=== PATIENT | female | born 1940 | race Two or more races ===

== ENCOUNTER 2019-03-24 11:53 | Inpatient (IN) | payer MEDICARE, MEDICAID ==
[~2019-03-24] VITALS: Ht 162.6 cm; Wt 122.5 kg
--- NOTE | 2019-03-24 11:55 | NUR ---
[id number] C/O L KNEE AREA PAIN S/P GLF IN A BATHROOM TODAY, pt awake, alert, -sob, nad noted, vss, pending md grimes
[2019-03-24] MEDS ORDERED: SPIR25TA6 PO (12:11)
[2019-03-24] MEDS ORDERED: FLUC200T PO (12:11)
[2019-03-24] MEDS ORDERED: BUME2TAB7 PO (12:11)
[2019-03-24] MEDS ORDERED: ROPI2TAB7 PO (12:11)
[2019-03-24] MEDS ORDERED: CARV6.25 PO (12:11)
[2019-03-24] MEDS ORDERED: PREG50CA PO (12:11)
[2019-03-24] MEDS ORDERED: FLEC100T2 PO (12:11)
[2019-03-24] MEDS ORDERED: EMPA25TA PO (12:11)
[2019-03-24] MEDS ORDERED: RIVA10TA PO (12:11)
[2019-03-24] MEDS ORDERED: GLIM1TAB18 PO (12:11)
[2019-03-24] MEDS ORDERED: ATOR20TA PO (12:11)
[2019-03-24] MEDS ORDERED: FOLI0.4T2 PO (12:11)
[2019-03-24] MEDS ORDERED: LINA145C PO (12:11)
[2019-03-24] MEDS ORDERED: TRAV5DRO EACHEYE (12:11)
[2019-03-24] MEDS ORDERED: ESOM40CA PO (12:11)
[2019-03-24] MEDS ORDERED: OLOP2.5D5 EACHEYE (12:13)
[2019-03-24] MEDS ORDERED: LIRA0.6P2 SQ (12:13)
[2019-03-24] MEDS ORDERED: HYDROMORPHONE 1 MG/1 ML DISP.SYRIN ONE ×2 (12:19→13:30)
[2019-03-24] MEDS ORDERED: HYDROMORPHONE INJ 0.5 MG/0.5 ML SYRINGE IV ONE ×2 (12:30→13:30)
--- NOTE | 2019-03-24 13:22 | NUR ---
NURSING SUP GAVE BED 204-1.
[2019-03-24 13:27] LABS: ALBUMIN 3.1 g/dL (3.4-5.0); BILIRUBIN,DIRECT 0.1 mg/dL (0.0-0.2); BILIRUBIN,TOTAL 0.5 mg/dL (0.2-1.0); TOTAL PROTEIN, SERUM 7.1 g/dL (6.4-8.2)
--- NOTE | 2019-03-24 13:35 | NUR ---
CALLED [facility], KATHRYN RAMOS
[2019-03-24 13:42] LABS: APPEARANCE,URINE Slightly Cloudy (CLEAR); BILIRUBIN,URINE Negative (NEGATIVE); BLOOD, URINE Negative Ery/uL (NEGATIVE); COLOR,URINE Yellow (YELLOW); KETONES,URINE Negative (NEGATIVE); LEUKOCYTE ESTERASE ,URINE Negative (NEGATIVE); NITRITE, URINE Positive (NEGATIVE); PH,URINE 5.5 (5.0-8.0); PROTEIN,URINE Negative (NEGATIVE); UGLUCOSE >=1000 mg/dL (NEGATIVE); UROBILINOGEN,URINE 0.2 EU/dL (0.2)
[2019-03-24 13:49] LABS: BACTERIA,URINE 3+ /HPF (None Seen); RBC,URINE NONE SEEN /HPF (0-2); SQUAMOUS EPITHELIAL CELL,UR Few /HPF (None Seen)
--- NOTE | 2019-03-24 14:00 | NUR ---
report given to sepideh linares for estuardo pt will be transported to ms
[2019-03-24 14:13] LABS: BASOPHILS % (AUTO) 0.4 % (0.0-2.0); EOSINOPHILS % (AUTO) 1.7 % (0.0-6.0); HEMATOCRIT 45 % (33-45); HEMOGLOBIN 14.5 g/dL (11.5-14.8); LYMPHOCYTES # (AUTO) 1.8 /CMM (0.8-4.8); MEAN CORPUSCULAR HGB CONC 32 g/dl (31.0-36.0); MEAN CORPUSCULAR VOLUME 82 fL (82-100); MONOCYTES # (AUTO) 0.6 /CMM (0.1-1.30); MONOCYTES % (AUTO) 5.7 % (2.0-12.0); NEUTROPHILS # (AUTO) 8.2 /CMM (1.8-8.9); NEUTROPHILS % (AUTO) 75.2 % (43.0-81.0); PLATELET COUNT (AUTO) 204 /CMM (150-450); RED BLOOD CELL COUNT(AUTO) 5.51 MIL/uL (4.0-5.2); WHITE BLOOD COUNT (AUTO) 10.8 K/uL (4.3-11.0)
[2019-03-24 14:24] LABS: CARBON DIOXIDE 27 mmol/L (21-32); CHLORIDE 99 mmol/L (98-107); CREATININE 1.1 mg/dL (0.6-1.3); GLUCOSE 192 mg/dL (74-106); POTASSIUM 4.7 mmol/L (3.5-5.1); SODIUM SERUM 138 mmol/L (136-145); UREA NITROGEN, BLOOD 37 mg/dL (7-18)
[2019-03-24 14:30] VITALS: BP 167/77
[2019-03-24] MEDS ORDERED: ACETAMINOPHEN 325 MG TABLET PO PRN (14:30)
[2019-03-24] MEDS ORDERED: Z GUARD REMEDY 2 OZ OINT TP PRN (14:30)
[2019-03-24] MEDS ORDERED: ONDANSETRON HCL/PF 4 MG/2 ML VIAL IVP PRN (14:30)
[2019-03-24] MEDS ORDERED: MAG HYDROX/AL HYDROX/SIMETH 30 ML UDC PO PRN (14:30)
[2019-03-24] MEDS ORDERED: MAGNESIUM HYDROXIDE 30 ML UDC PO PRN (14:30)
[2019-03-24 14:50] VITALS: BP 167/77
--- NOTE | 2019-03-24 14:58 | NUR ---
PT TRANSPORTED TO 2ND FLOOR
--- NOTE | 2019-03-24 14:58 | NUR ---
RECEIVED PATIENT FROM ER VIA GURNEY. PATIENT A/OX3, HAITIAN SPEAKING, KNOW BASIC FRISIAN. DIAGNOSIS OF LEFT FEMUR FRACTURE. NOT IN ANY FORM OF DISTRESS, NO SOB. COMPLAINTS OF LEFT LEG PAIN 7/10 ACHING. JUST MEDICATED WITH DILAUDID IN EMERGENCY ROOM. WILL MEDICATE PAIN MEDS ACCORDINGLY. SITUATED PATIENT IN THE ROOM. SHOWED HOW TO USE THE CALL LIGHT AND INSTRUCTED TO IT IF ASSISTANCE IS NEEDED. BELONGINGS CHECKED BY MARII MOSHER, AND NOTED IT ON THE BELONGINGS FORM. REFUSED SKIN ASSESSMENT ON THE ENTIRE BACK PATIENT IS IN PAIN. PATIENT AGREED TO TAKE PICTURES. PHOTOS TAKEN ON BOTH LEGS, ABDOMEN, AND RIGHT BREAST. KEPT PATIENT SAFE AND COMFORTABLE. BED IN LOW/LOCKED POSITION, SIDERAILS UPX2, CALL LIGHT IN REACH. WILL CONTINUE TO MONITOR ACCORDINGLY.
--- NOTE | 2019-03-24 15:32 | NUR ---
MS RN NOTES SEEN AND EVALUATED BY ADMITTING MD/ED. CURRENTLY IN THE ROOM WITH FAMILY AND PT.
--- NOTE | 2019-03-24 15:37 | NUR ---
NPO AFTERMIDNIGHT PER DR THOMPSON.
[2019-03-24] MEDS ORDERED: FEE PK DOSING 1 MIN EA MC ONE (15:59)
[2019-03-24 16:00] VITALS: BP 154/85
[2019-03-24] MEDS: VANCOMYCIN 1.5 GM in IV D5W 500 ML IV SCH (16:42)
[2019-03-24] MEDS: OLOPATADINE HCL 0.1% OPHTH BOTTLE OP SCH (17:00)
[2019-03-24] MEDS: PANTOPRAZOLE 40 MG TABLET.DR PO SCH (17:13)
[2019-03-24] MEDS: GLIMEPIRIDE 1 MG TABLET PO SCH (17:13)
[2019-03-24] MEDS: ropiniROLE 0.5 MG TABLET PO SCH (17:13)
[2019-03-24] MEDS: FLECAINIDE ACETATE (100 MG) 100 MG TABLET PO SCH (17:14)
[2019-03-24] MEDS: BUMETANIDE (1 MG) 1 MG TABLET PO SCH (17:18)
--- NOTE | 2019-03-24 17:20 | NUR ---
MS RN NOTES PT SEEN AND EVALUATED BY SAMMIE/SHERRILL MCNAMARA FROM [facility]. SPOKE TO PT AND FAMILY AT BEDSIDE REGARDING SCHEDULED SURGERY TOMORROW. AWAITING FOR ACTUAL "SURGERY ORDER", CONSENTS PREPARED. WILL ENDORSE TO INCOMING NIGHT NURSE FOR JOSE.
[2019-03-24] MEDS: CARVEDILOL 6.25 MG TABLET PO SCH (17:23)
[2019-03-24] MEDS: MORPHINE SULFATE INJ 2 MG/ML DISP.SYRIN IV PRN ×2 (18:32→22:44)
--- NOTE | 2019-03-24 18:45 | NUR ---
MS RN CLOSING NOTES PT REMAINS IN BED, AWAKE, A/OX4. GERMAN SPEAKING, DAUGHTER/CHRISTINE PRESENT AT BEDSIDE. PT ON SUPPLEMENTARY OXYGEN AT 2LPM VIA NC, WITH NO ACUTE RESPIRATORY DISTRESS NOTED. PT STATED PAIN ON LEFT SIDE OF HIP TO KNEE, PRN PAIN MEDICINE GIVEN ORDERED. PIV TO LAC G18, FLUSHED WITH NS, INTACT AND OPERATIONAL. FC IN PLACE, WITH CLEAR YELLOW URINE IN THE BAG. PT KEPT COMFORTABLE. ALL NEEDS AND CARE ATTENDED. PT'S BED IN LOWEST LOCKED POSITION WITH SR X3. CALL LIGHT KEPT WITHIN REACH. WILL ENDORSE TO INCOMING NIGHT NURSE FOR JOSE.
--- NOTE | 2019-03-24 19:05 | NUR ---
DINORAH MS OPENING NOTES RECEIVED PATIENT IN BED AWAKE ALERT AND ORIENTED X4, RESPIRATIONS EVEN AND UNLABORED WITH EQUAL RISE AND FALL OF CHEST, AT THIS TIME, DENIES ANY PAIN OR DISCOMFORT, IV SITE TO LEFT AC #18 G INTACT AND PATENT, NO REDNESS, NO INFILTRATION PRESENT, SAFETY PRECAUTIONS RENDERED, ORIENTED TO STAFF AND CALL LIGHT AND KEPT WITHIN REACH, LOW BED AND LOCKED, ALL NEEDS ATTENDED AT THIS TIME, WILL CONTINUE TO MONITOR AND ATTEND TO NEEDS, DRESSING REMAINS CLEAN DRY AND INTACT TO LEFT FOOT. Addendum: 03/25/19 at 0718 by PADMINI BASHIR RN DISREGARD WRONG ENTRY
[2019-03-24 20:00] VITALS: BP 146/74
[2019-03-24] MEDS: LATANOPROST EYE DROP 0.005% 2.5 ML BOTTLE OP SCH (21:06)
[2019-03-24 21:19] VITALS: BP 146/74
--- NOTE | 2019-03-24 22:46 | NUR ---
rn ms notes patient complaint of pain to left hip, requested for morphine states 08/15 prn given as ordered vs wnl. will continue to monitor and attend to needs, offered to reposition turn and see back patient refused.
--- NOTE | 2019-03-25 00:06 | NUR ---
rn ms notes received call from md juan keita patient to be npo at midnight scheduled for 4pm surgery.
--- NOTE | 2019-03-25 01:57 | NUR ---
rn ms notes patient complaint of pain to left leg 11/15 requesting for pain medication one time. hospitalist samantha made aware with new order for dilaudid 1mg ivp x 1 dose to be given with zofran 4mg once. patient made aware agreed with plan , vs wnl 126/68,94,94%, 18. will give as ordered.
[2019-03-25] MEDS ORDERED: HYDROMORPHONE 1 MG/1 ML DISP.SYRIN IV ONE (02:00)
--- NOTE | 2019-03-25 05:22 | NUR ---
rn ms notes unable to assess skin to sacral area. patient encouraged to turn and reposition per patient states " no leave me alone dont touch too much pain" despite pain medication provided. also attempted to reposition ble and offload patient does not want pillows to ble states "take it out" despite education. will continue to encourage repositioning and offloading.
[2019-03-25] MEDS: MORPHINE SULFATE INJ 2 MG/ML DISP.SYRIN IV PRN (06:39)
--- NOTE | 2019-03-25 06:40 | NUR ---
rn ms notes patient complaint of pain to left hip, requested for morphine states 10/10 prn given as ordered vs wnl. will continue to monitor and attend to needs, offered to reposition turn and see back patient refused.
--- NOTE | 2019-03-25 07:13 | NUR ---
MS RN OPENING NOTES RECEIVED PT IN BED, AWAKE, A/OX4. TUNISIAN SPEAKING, DAUGHTER/CHRISTINE PRESENT AT BEDSIDE. PT ON SUPPLEMENTARY OXYGEN AT 2LPM VIA NC, WITH NO ACUTE RESPIRATORY DISTRESS NOTED. PT STATED PAIN ON LEFT SIDE OF HIP TO KNEE, PRN PAIN MEDICINE GIVEN ORDERED BY NIGHT NURSE. PIV TO LAC G18, FLUSHED WITH NS, INTACT AND OPERATIONAL. FC IN PLACE, WITH CLEAR YELLOW URINE IN THE BAG. PT KEPT COMFORTABLE. PT CURRENTLY ON NPO, SCHEDULED SURGERY TODAY AT 4PM. PT'S BED IN LOWEST LOCKED POSITION WITH SR X3. CALL LIGHT KEPT WITHIN REACH. WILL CONTINUE PLAN OF CARE.
--- NOTE | 2019-03-25 07:13 | NUR ---
RN MS CLOSING NOTES PATIENT IN BED AWAKE ALERT AND ORIENTED X3, RESPIRATIONS EVEN AND UNLABORED WITH EQUAL RISE AND FALL OF CHEST, AT THIS TIME,MORPHINE EFFECTIVE STATES "HELPED WITH PAIN BETTER", IV SITE TO LEFT AC #18 G INTACT AND PATENT, NO REDNESS, NO INFILTRATION PRESENT, SAFETY PRECAUTIONS RENDERED, CALL LIGHT KEPT WITHIN REACH, LOW BED AND LOCKED, ALL NEEDS ATTENDED AT THIS TIME, WILL CONTINUE TO MONITOR AND ATTEND TO NEEDS AND ENDORSE TO NEXT SHIFT, ALL DUE MEDICATIONS GIVEN NO ADVERSE REACTIONS PRESENT.
[2019-03-25 07:46] LABS: BASOPHILS % (AUTO) 0.2 % (0.0-2.0); EOSINOPHILS % (AUTO) 1.3 % (0.0-6.0); HEMATOCRIT 42 % (33-45); HEMOGLOBIN 13.7 g/dL (11.5-14.8); LYMPHOCYTES # (AUTO) 1.3 /CMM (0.8-4.8); LYMPHOCYTES % (AUTO) 14.2 % (20.0-44.0); MEAN CORPUSCULAR HGB CONC 32 g/dl (31.0-36.0); MEAN CORPUSCULAR VOLUME 82 fL (82-100); MONOCYTES # (AUTO) 0.7 /CMM (0.1-1.30); MONOCYTES % (AUTO) 8.1 % (2.0-12.0); NEUTROPHILS % (AUTO) 76.2 % (43.0-81.0); PLATELET COUNT (AUTO) 183 /CMM (150-450); RED BLOOD CELL COUNT(AUTO) 5.14 MIL/uL (4.0-5.2); WHITE BLOOD COUNT (AUTO) 9.2 K/uL (4.3-11.0)
[2019-03-25 07:55] LABS: ALBUMIN 2.7 g/dL (3.4-5.0); BILIRUBIN,TOTAL 0.6 mg/dL (0.2-1.0); CALCIUM, SERUM 9.1 mg/dL (8.5-10.1); PHOSPHORUS 3.6 mg/dL (2.5-4.9); TOTAL PROTEIN, SERUM 6.5 g/dL (6.4-8.2)
[2019-03-25 08:00] VITALS: BP 113/65
[2019-03-25] MEDS: IV D5/ 0.9% NACL 1,000 ML IV PRN (09:00)
[2019-03-25] MEDS ORDERED: HYDROMORPHONE INJ 0.5 MG/0.5 ML SYRINGE IV PRN (09:00)
[2019-03-25] MEDS: FOLIC ACID 1 MG TABLET PO SCH (09:22)
[2019-03-25] MEDS: ATORVASTATIN 10 MG TABLET PO SCH (09:22)
[2019-03-25] MEDS: PANTOPRAZOLE 40 MG TABLET.DR PO SCH ×2 (09:22→17:34)
[2019-03-25] MEDS: ropiniROLE 0.5 MG TABLET PO SCH ×3 (09:22→17:34)
[2019-03-25] MEDS: CARVEDILOL 6.25 MG TABLET PO SCH ×2 (09:23→20:19)
[2019-03-25] MEDS: BUMETANIDE (1 MG) 1 MG TABLET PO SCH ×2 (09:23→17:34)
[2019-03-25] MEDS: FLUCONAZOLE (100 MG) 100 MG TABLET PO SCH (09:23)
[2019-03-25] MEDS: SPIRONOLACTONE 25 MG TABLET PO SCH (09:23)
[2019-03-25] MEDS: FLECAINIDE ACETATE (100 MG) 100 MG TABLET PO SCH ×2 (09:23→17:34)
[2019-03-25] MEDS: OLOPATADINE HCL 0.1% OPHTH BOTTLE OP SCH ×2 (09:24→17:00)
[2019-03-25] MEDS: BLOOD SUGAR DIAGNOSTIC 1 EACH STRIP IN SCH ×3 (09:34→17:19)
[2019-03-25] MEDS: HYDROMORPHONE 1 MG/1 ML DISP.SYRIN IV PRN ×3 (10:03→23:43)
--- NOTE | 2019-03-25 13:58 | NUR ---
MS RN NOTES PT HAS STABLE VITALS BEFORE OR NURSES TOOK PT TO SURGERY SCHEDULED AT 2PM WITH DR. STONE. FAMILY IN THE ROOM.
[2019-03-25] MEDS ORDERED: NS 0.9% IV ONE (14:00)
[2019-03-25] MEDS ORDERED: TRANEXAMIC ACID IV ONE (14:00)
[2019-03-25] MEDS ORDERED: BACITRACIN 50000 UNITS/VIAL ONE (14:14)
[2019-03-25] MEDS ORDERED: BUPIVACAINE 0.5 % PF 150 MG/30 ML VIAL ONE (14:14)
[2019-03-25] MEDS ORDERED: FENTANYL PF 100MCG/2ML AMPUL ONE (14:36)
[2019-03-25] MEDS ORDERED: LABETALOL HCL IV 100MG VIAL ONE (16:34)
[2019-03-25 17:30] VITALS: BP 142/76
[2019-03-25] MEDS ORDERED: HYDROMORPHONE INJ 2 MG/ML DISP.SYRIN ONE (17:30)
[2019-03-25] MEDS: GLIMEPIRIDE 1 MG TABLET PO SCH (17:34)
[2019-03-25] MEDS: VANCOMYCIN 1.5 GM in IV D5W 500 ML IV SCH (17:43)
--- NOTE | 2019-03-25 18:52 | NUR ---
MS RN CLOSING NOTES PT REMAINS IN BED, INTERMITTENTLY DOZING OFF, A/OX4. MONTENEGRIN SPEAKING, DAUGHTER/CHRISTINE PRESENT AT BEDSIDE. PT ON SUPPLEMENTARY OXYGEN AT 2LPM VIA NC, WITH NO ACUTE RESPIRATORY DISTRESS NOTED. PT STATED PAIN ON THE SURGERY AREA,PRN PAIN MEDICINE GIVEN ORDERED. IVF D5NS AT 50ML/HR TO LFA G22, INTACT AND FLUID INFUSING WELL. FC IN PLACE, WITH CLEAR YELLOW URINE IN THE BAG. PT KEPT COMFORTABLE. ALL NEEDS AND CARE ATTENDED. PT'S BED IN LOWEST LOCKED POSITION WITH SR X3. CALL LIGHT KEPT WITHIN REACH. WILL ENDORSE TO INCOMING NIGHT NURSE FOR JOSE.
--- NOTE | 2019-03-25 19:31 | NUR ---
MS RN OPENING NOTES PATIENT RECEIVED RESTING IN BED WITH DAUGHTER AT BEDSIDE, A/O X 3 MOSTLY KAZAKH SPEAKING. ON 2L OF O2 VIA NC WITH BREATHING EVEN AND UNLABORED, NO SOB NOTED. NO SIGNS OF ACUTE DISTRESS. NO CURRENT COMPLAINTS OF PAIN OR DISCOMFORT. MATTHEWS CATHETER IN NOTED AND WITH CLEAR YELLOW URINE. IF LOCATED ON LFA #22 RUNNING D5 NS @ 50ML/ HR. SAFETY PRECAUTIONS IN PLACE WITH BED IN LOWEST POSITION, CALL LIGHT WITHIN REACH, BREAKS ON, AND SIDE RAILS UP. WILL CONTINUE TO MONITOR.
[2019-03-25 20:30] VITALS: BP 125/57
[2019-03-25] MEDS: LATANOPROST EYE DROP 0.005% 2.5 ML BOTTLE OP SCH (21:33)
[2019-03-25] MEDS ORDERED: BLOOD SUGAR DIAGNOSTIC 1 EACH STRIP IN SCH (22:00)
[2019-03-25] MEDS: CEFAZOLIN 2 GM in IV D5W 100 ML IV SCH (22:12)
--- NOTE | 2019-03-26 01:40 | NUR ---
MS RN NOTES PATIENT COMPLAINED SHE DID NOT FEEL WELL, WANTED ME TO CHECK HER BLOOD SUGAR FSBS 225. HAS NO ORDER FOR INSULIN COVERAGE BUT TAKES PO MED GLUMRPURIDE. LET FOLDER INSPECTOR HANNAH AWARE AND HE ORDERED A MILD SLIDING SCALE AND TO INCREASE IVF TO 75 ML/HR- NO COVERAGE FOR NOW WILL CONTINUE TO MONITOR.
[2019-03-26] MEDS ORDERED: DEXTROSE 50%-WATER 50 ML DISP.SYRIN IV PRN (02:30)
[2019-03-26] MEDS: HYDROMORPHONE 1 MG/1 ML DISP.SYRIN IV PRN ×5 (04:27→22:40)
[2019-03-26] MEDS: CEFAZOLIN 2 GM in IV D5W 100 ML IV SCH ×2 (06:37→14:45)
[2019-03-26] MEDS: INSULIN REGULAR, HUMAN 100 UNIT/ML 3 ML VIAL SQ PRN ×3 (06:44→22:39)
[2019-03-26] MEDS: BLOOD SUGAR DIAGNOSTIC 1 EACH STRIP IN SCH ×5 (06:45→22:39)
--- NOTE | 2019-03-26 06:46 | NUR ---
MS RN CLOSING NOTES PATIENT CURRENTLY RESTING IN BED A/O X 3, MOSTLY CYPRIOT SPEAKIONG. ON 2L OF O2 VIA NC WITH BREATHING EVEN AND UNLABORED, NO SOB NOTED. NO SIGNS OF ACUTE DISTRESS. NO COMPLAINTS OF PAIN OR DISCOMFORT AT THE MOMENT. IV LOCATED ON L FA #22 RUNNING D5NS @ 75 ML/ HR. PATIENT WAS KEPT CLEAN AND DRY THROUGHOUT THE WHOLE NIGHT. ALL NEEDS ATTENDED TO. SAFETY PRECAUTIONS IN PLACE WITH BED IN LOWEST POSITION, CALL LIGHT WITHIN REACH BREAKS, ON ,AND SIDE RAILS UP X2. WILL ENDORSE TO ONCOMING SHIFT ABOUT JOSE.
[2019-03-26] MEDS: IV D5/ 0.9% NACL 1,000 ML IV PRN (06:53)
[2019-03-26 07:38] LABS: CALCIUM, SERUM 8.1 mg/dL (8.5-10.1); CREATININE 1.3 mg/dL (0.6-1.3); POTASSIUM 3.6 mmol/L (3.5-5.1)
--- NOTE | 2019-03-26 07:46 | NUR ---
rn opening notes Patient received on 2L nasal cannula, no sob noted, patient shows no s/s of pain at this time. A/O x3 Bahraini speaking mostly. L FA 22 with D5 NS @ 50 ml per hour. PT eval pending at this time. Bed at the lowest setting, call light within reach, side rails up x2.
[2019-03-26] MEDS: ropiniROLE 0.5 MG TABLET PO SCH ×3 (08:36→17:00)
[2019-03-26] MEDS: SPIRONOLACTONE 25 MG TABLET PO SCH (08:36)
[2019-03-26] MEDS: ATORVASTATIN 10 MG TABLET PO SCH (08:36)
[2019-03-26] MEDS: BUMETANIDE (1 MG) 1 MG TABLET PO SCH ×2 (08:37→17:00)
[2019-03-26] MEDS: CARVEDILOL 6.25 MG TABLET PO SCH ×2 (08:37→22:37)
[2019-03-26] MEDS: FOLIC ACID 1 MG TABLET PO SCH (08:37)
[2019-03-26] MEDS: PANTOPRAZOLE 40 MG TABLET.DR PO SCH ×2 (08:37→17:00)
[2019-03-26] MEDS: FLECAINIDE ACETATE (100 MG) 100 MG TABLET PO SCH ×2 (08:37→17:00)
[2019-03-26] MEDS: OLOPATADINE HCL 0.1% OPHTH BOTTLE OP SCH ×2 (08:38→17:00)
[2019-03-26] MEDS ORDERED: METF500T20 PO (15:47)
[2019-03-26] MEDS: DOCUSATE SODIUM 100 MG CAPSULE PO SCH (17:00)
[2019-03-26] MEDS: RIVAROXABAN 10 MG TABLET PO SCH (17:00)
[2019-03-26] MEDS: Liraglutide (Victoza 3-Pak) 1.8 MG SQ SCH (17:26)
[2019-03-26] MEDS: GLIMEPIRIDE 1 MG TABLET PO SCH (17:37)
--- NOTE | 2019-03-26 17:44 | NUR ---
rn closing notes Patient remains on 4 L nasal cannula, no sob noted, patient denies pain at this time. Patient s/p Left femur surgery. Could not walk with PT this morning. CCHO diet, L FA 22 with D5 NS @ 50 ml per hour, currently been on hold. Vanco trough alise a few minutes ago and is awaiting result. Patient did not want a lot of medications today, per patient only wants the diabetes medication. Refused x4. Bed at the lowest setting, call light within reach, side rails up x2. Will give report to NOC RN for JOSE bedside.
[2019-03-26] MEDS: METFORMIN XR 500 MG TAB.SR.24H PO SCH (18:30)
[2019-03-26] MEDS: VANCOMYCIN 1.5 GM in IV D5W 500 ML IV SCH (18:40)
[2019-03-26 20:00] VITALS: BP 114/64
[2019-03-26] MEDS: LATANOPROST EYE DROP 0.005% 2.5 ML BOTTLE OP SCH (22:37)
--- NOTE | 2019-03-27 00:14 | NUR ---
MS2/RN PATIENT IS SLEEPING, APPEAR COMFORTABLE, NO SIGNS OF DISTRESS NOTED, CALL LIGHT IN REACH. WILL CONTINUE TO MONITOR.
[2019-03-27] MEDS: HYDROMORPHONE 1 MG/1 ML DISP.SYRIN IV PRN ×4 (05:06→17:59)
--- NOTE | 2019-03-27 06:07 | NUR ---
MS2/RN PATIENT APPEAR SLEEPING AT THIS TIME, APPEAR COMFORTABLE, NO SIGNS OF DISTRESS NOTED, CALL LIGHT IN REACH. PATIENT REFUSED REPOSITIONING THE WHOLE SHIFT DESPITE EXPLANATION ABOUT IMPORTANCE OF REPOSITIONING. ALL NEEDS ATTENDED AT THIS TIME, WILL CONTINUE TO MONITOR.
--- NOTE | 2019-03-27 06:38 | NUR ---
MS2/RN ACCU CHECK BLOOD SUGAR 176, PATIENT AND DAUGHTER REFUSED INSULIN, PATIENT AND DAUGHTER WOULD LIKE TO GET THE VICTOZA AND METFORMIN INSTEAD OF INSULIN. WILL ENDORSE TO NEXT RN.
[2019-03-27] MEDS: BLOOD SUGAR DIAGNOSTIC 1 EACH STRIP IN SCH ×4 (06:46→22:05)
[2019-03-27 07:13] LABS: BASOPHILS # (AUTO) 0.1 /CMM (0.0-0.2); BASOPHILS % (AUTO) 0.5 % (0.0-2.0); EOSINOPHILS % (AUTO) 2.2 % (0.0-6.0); HEMATOCRIT 35 % (33-45); HEMOGLOBIN 11.2 g/dL (11.5-14.8); LYMPHOCYTES # (AUTO) 1.6 /CMM (0.8-4.8); LYMPHOCYTES % (AUTO) 13.8 % (20.0-44.0); MEAN CORPUSCULAR HGB CONC 32 g/dl (31.0-36.0); MEAN CORPUSCULAR VOLUME 82 fL (82-100); MONOCYTES # (AUTO) 0.9 /CMM (0.1-1.30); MONOCYTES % (AUTO) 7.8 % (2.0-12.0); NEUTROPHILS # (AUTO) 8.6 /CMM (1.8-8.9); NEUTROPHILS % (AUTO) 75.7 % (43.0-81.0); PLATELET COUNT (AUTO) 167 /CMM (150-450); RED BLOOD CELL COUNT(AUTO) 4.32 MIL/uL (4.0-5.2); WHITE BLOOD COUNT (AUTO) 11.3 K/uL (4.3-11.0)
--- NOTE | 2019-03-27 07:23 | NUR ---
MS RN OPENING NOTES PATIENT RECEIVED AWAKE IN BED IN NO ACUTE SIGNS OF DISTRESS. HOB ELEVATED. A/O X 3. MOSTLY MEXICAN SPEAKING, NO CURRENT COMPLAINTS OF PAIN OR DISCOMFORT. LEFT LEG SURGICAL INCISION C/D/I WITH LEG IMMOBILIZER ON AND ELEVATED WITH PILLOW. ON ROOM AIR, BREATHING EVEN AND UNLABORED. MATTHEWS CATHETER IN PLACE DRAINING CLEAR YELLOW URINE OUTPUT. IV ON LFA G#22 INTACT AND PATENT, IVF OF D5 NS @ 50ML/ HR INFUSING. SAFETY PRECAUTIONS IN PLACE: BED IN LOWEST LOCK POSITION WITH SR UP X2. CALL LIGHT WITHIN REACH. WILL CONTINUE TO MONITOR.
[2019-03-27] MEDS: Linaclotide (Linzess) 145 MCG PO SCH (07:32)
[2019-03-27 07:38] LABS: CALCIUM, SERUM 8.6 mg/dL (8.5-10.1); CARBON DIOXIDE 29 mmol/L (21-32); CHLORIDE 95 mmol/L (98-107); CREATININE 1.5 mg/dL (0.6-1.3); GLUCOSE 190 mg/dL (74-106); POTASSIUM 3.5 mmol/L (3.5-5.1); SODIUM SERUM 131 mmol/L (136-145); UREA NITROGEN, BLOOD 36 mg/dL (7-18)
[2019-03-27] MEDS: METFORMIN XR 500 MG TAB.SR.24H PO SCH ×2 (08:01→17:09)
[2019-03-27] MEDS: ropiniROLE 0.5 MG TABLET PO SCH ×3 (08:37→18:01)
[2019-03-27] MEDS: BUMETANIDE (1 MG) 1 MG TABLET PO SCH ×2 (08:37→18:01)
[2019-03-27] MEDS: SPIRONOLACTONE 25 MG TABLET PO SCH (08:38)
[2019-03-27] MEDS: FLECAINIDE ACETATE (100 MG) 100 MG TABLET PO SCH ×2 (08:39→18:03)
[2019-03-27] MEDS: DOCUSATE SODIUM 100 MG CAPSULE PO SCH ×2 (08:39→18:02)
[2019-03-27] MEDS: FOLIC ACID 1 MG TABLET PO SCH (08:40)
[2019-03-27] MEDS: PANTOPRAZOLE 40 MG TABLET.DR PO SCH ×2 (08:40→18:03)
[2019-03-27] MEDS: ATORVASTATIN 10 MG TABLET PO SCH (08:40)
[2019-03-27] MEDS: CARVEDILOL 6.25 MG TABLET PO SCH ×2 (08:42→22:17)
[2019-03-27] MEDS: OLOPATADINE HCL 0.1% OPHTH BOTTLE OP SCH ×2 (08:43→18:03)
--- NOTE | 2019-03-27 10:01 | NUR ---
RN NOTES/PAIN MANAGEMENT PT C/O PAIN ON HER LEFT HIP /UPPER LEG WITH SCALE OF 9/10. PRN DILAUDID 1MG IVP ADMINISTERED AT 0956. WILL CONTINUE TO MONITOR AND REASSESS PT.
[2019-03-27 12:10] VITALS: BP 134/57
[2019-03-27] MEDS: INSULIN REGULAR, HUMAN 100 UNIT/ML 3 ML VIAL SQ PRN ×2 (12:13→17:42)
[2019-03-27] MEDS: CEFAZOLIN 1 GM in IV D5W 50 ML IV SCH (12:28)
--- NOTE | 2019-03-27 13:51 | NUR ---
RN NOTES/PAIN MANAGEMENT PT C/O ACHING PAIN ON HER LEFT HIP /UPPER LEG WITH SCALE OF 8/10. PRN DILAUDID 1MG IVP ADMINISTERED AT 1417. WILL CONTINUE TO MONITOR AND REASSESS PT.
[2019-03-27 16:00] VITALS: BP 133/54
[2019-03-27 17:02] LABS: CREATININE, URINE 66.4 MG/DL (30.0-125.0); URINE TOTAL PROTEIN 74.4 mg/dL (0-11.9)
[2019-03-27 17:07] LABS: APPEARANCE,URINE SL CLOUDY (CLEAR); BILIRUBIN,URINE NEGATIVE (NEGATIVE); BLOOD, URINE LARGE Ery/uL (NEGATIVE); COLOR,URINE YELLOW (YELLOW); KETONES,URINE NEGATIVE (NEGATIVE); LEUKOCYTE ESTERASE ,URINE TRACE (NEGATIVE); NITRITE, URINE NEGATIVE (NEGATIVE); PROTEIN,URINE 30 mg/dl (NEGATIVE); UGLUCOSE >=1000 mg/dL (NEGATIVE); UROBILINOGEN,URINE 0.2 EU/dL (0.2)
[2019-03-27] MEDS: Liraglutide (Victoza 3-Pak) 1.8 MG SQ SCH (17:09)
[2019-03-27] MEDS: GLIMEPIRIDE 1 MG TABLET PO SCH (17:12)
[2019-03-27 17:18] LABS: BACTERIA,URINE Rare /HPF (None Seen); RBC,URINE TOO NUMEROUS TO COUN /HPF (0-2); SQUAMOUS EPITHELIAL CELL,UR Few /HPF (None Seen)
[2019-03-27] MEDS: RIVAROXABAN 10 MG TABLET PO SCH (18:02)
[2019-03-27 18:21] LABS: EOSINOPHIL,URINE Few
[2019-03-27] MEDS ORDERED: BISACODYL SUPP (10 MG) 10 MG/SUPP.RECT SUPP.RECT RC ONE (18:30)
[2019-03-27] MEDS ORDERED: BISACODYL SUPP (10 MG) 10 MG/SUPP.RECT SUPP.RECT RC PRN (18:30)
--- NOTE | 2019-03-27 18:45 | NUR ---
MS RN CLOSING NOTES PATIENT ASLEEP IN BED AT THIS TIME, EASILY AWAKENS. HOB ELEVATED. DAUGHTER AT BEDSIDE. A/O X 3. MOSTLY [place] VERDEAN SPEAKING. LEFT LEG SURGICAL INCISION DRESSING C/D/I WITH LEG IMMOBILIZER ON AND ELEVATED WITH PILLOW. ON ROOM AIR, TOLERATING WELL WITH NO ACUTE RESPIRATORY DISTRESS NOTED DURING THE DAY.MATTHEWS CATHETER IN PLACE DRAINING CLEAR YELLOW URINE OUTPUT. IV SL ON LFA G#22 INTACT, PATENT AND FLUSHES WELL. SAFETY PRECAUTIONS IN PLACE: BED IN LOWEST LOCK POSITION WITH SR UP X2. CALL LIGHT WITHIN REACH. ALL NEEDS AND CARE ATTENDED WELL. WILL ENDORSE TO CLAY CASTER NURSE FOR JOSE.
[2019-03-27 20:00] VITALS: BP 122/54
--- NOTE | 2019-03-27 21:05 | NUR ---
MS2/RN DULCOLAX SUPPOSITORY ADMINISTERED ORDERED, ALL NEEDS ATTENDED, WILL MONITOR.
[2019-03-27] MEDS: LATANOPROST EYE DROP 0.005% 2.5 ML BOTTLE OP SCH (22:06)
[2019-03-28] MEDS: CEFAZOLIN 1 GM in IV D5W 50 ML IV SCH ×3 (00:02→23:21)
[2019-03-28] MEDS: HYDROMORPHONE 1 MG/1 ML DISP.SYRIN IV PRN ×3 (02:37→11:43)
[2019-03-28 06:32] LABS: BASOPHILS % (AUTO) 0.2 % (0.0-2.0); HEMATOCRIT 35 % (33-45); HEMOGLOBIN 11.5 g/dL (11.5-14.8); LYMPHOCYTES # (AUTO) 1.6 /CMM (0.8-4.8); LYMPHOCYTES % (AUTO) 18.2 % (20.0-44.0); MEAN CORPUSCULAR HGB CONC 33 g/dl (31.0-36.0); MEAN CORPUSCULAR VOLUME 81 fL (82-100); MONOCYTES % (AUTO) 11.3 % (2.0-12.0); NEUTROPHILS # (AUTO) 6.2 /CMM (1.8-8.9); NEUTROPHILS % (AUTO) 69.3 % (43.0-81.0); PLATELET COUNT (AUTO) 234 /CMM (150-450); RED BLOOD CELL COUNT(AUTO) 4.34 MIL/uL (4.0-5.2)
--- NOTE | 2019-03-28 06:36 | NUR ---
MS2/RN PATIENT IS AWAKE AT THIS TIME, COMFORTABLE, NO SIGNS OF DISTRESS NOTED, CALL LIGHT IN REACH. ALL NEEDS ATTENDED AT THIS TIME, WILL CONTINUE TO MONITOR.
[2019-03-28] MEDS: INSULIN REGULAR, HUMAN 100 UNIT/ML 3 ML VIAL SQ PRN ×4 (06:55→22:28)
[2019-03-28 07:03] LABS: ALANINE AMINOTRANSFERASE 48 U/L (12-78); ALBUMIN 2.2 g/dL (3.4-5.0); ALKALINE PHOSPHATASE 126 U/L (46-116); ASPARTATE AMINOTRANSFERASE 149 U/L (15-37); BILIRUBIN,TOTAL 0.6 mg/dL (0.2-1.0); CALCIUM, SERUM 8.6 mg/dL (8.5-10.1); CARBON DIOXIDE 26 mmol/L (21-32); CHLORIDE 93 mmol/L (98-107); CREATININE 1.6 mg/dL (0.6-1.3); GLUCOSE 209 mg/dL (74-106); PHOSPHORUS 3.7 mg/dL (2.5-4.9); POTASSIUM 4.3 mmol/L (3.5-5.1); SODIUM SERUM 130 mmol/L (136-145); TOTAL PROTEIN, SERUM 6.3 g/dL (6.4-8.2); UREA NITROGEN, BLOOD 47 mg/dL (7-18)
--- NOTE | 2019-03-28 07:42 | NUR ---
MS2/RN ENDORSED TO CAMILO Galvan RN.
[2019-03-28 08:00] VITALS: BP 134/77
[2019-03-28] MEDS ORDERED: MINERAL OIL 133 ML (PYXIS) 1 EA ENEMA RC ONE (08:00)
--- NOTE | 2019-03-28 08:00 | NUR ---
MS RN OPENING NOTES PATIENT RECEIVED AWAKE IN BED IN NO ACUTE SIGNS OF DISTRESS. HOB ELEVATED. A/O X 3. MOSTLY QATARI SPEAKING, COMPLAINED OF CONSTIPATION.NOTIFIED JOSE PAUL WHO ORDERED FLEET MINERAL OIL ENEMA AND WAS ADMINISTERED WITH SMALL SOFT BM RESULT. LEFT LEG SURGICAL INCISION C/D/I WITH LEG IMMOBILIZER ON AND ELEVATED WITH PILLOW. ON ROOM AIR, BREATHING EVEN AND UNLABORED. MATTHEWS CATHETER IN PLACE DRAINING CLEAR YELLOW URINE OUTPUT. IV ON LFA G#22 INTACT AND PATENT,SAFETY PRECAUTIONS IN PLACE: BED IN LOWEST LOCK POSITION WITH SR UP X2. CALL LIGHT WITHIN REACH. WILL CONTINUE TO MONITOR.
[2019-03-28 08:08] LABS: CREATINE KINASE, TOTAL 1982 U/L (26-192); THYROID STIMULATING HORMONE 0.638 uIU/mL (0.358-3.74); URIC ACID 10.6 mg/dL (2.6-7.2)
[2019-03-28] MEDS: FLECAINIDE ACETATE (100 MG) 100 MG TABLET PO SCH ×2 (08:23→17:53)
[2019-03-28] MEDS: ATORVASTATIN 10 MG TABLET PO SCH (08:23)
[2019-03-28] MEDS: ropiniROLE 0.5 MG TABLET PO SCH ×3 (08:23→17:53)
[2019-03-28] MEDS: FLUCONAZOLE (100 MG) 100 MG TABLET PO SCH (08:24)
[2019-03-28] MEDS: BUMETANIDE (1 MG) 1 MG TABLET PO SCH (08:24)
[2019-03-28] MEDS: DOCUSATE SODIUM 100 MG CAPSULE PO SCH ×2 (08:24→17:53)
[2019-03-28] MEDS: FOLIC ACID 1 MG TABLET PO SCH (08:24)
[2019-03-28] MEDS: PANTOPRAZOLE 40 MG TABLET.DR PO SCH ×2 (08:24→17:53)
[2019-03-28] MEDS: CARVEDILOL 6.25 MG TABLET PO SCH ×2 (08:24→21:13)
[2019-03-28] MEDS: SPIRONOLACTONE 25 MG TABLET PO SCH (08:24)
[2019-03-28] MEDS: Linaclotide (Linzess) 145 MCG PO SCH (08:30)
[2019-03-28] MEDS: METFORMIN XR 500 MG TAB.SR.24H PO SCH (08:30)
[2019-03-28] MEDS: BLOOD SUGAR DIAGNOSTIC 1 EACH STRIP IN SCH ×4 (08:31→22:27)
--- NOTE | 2019-03-28 08:34 | NUR ---
scanned fleet mineral oil enema several times but didnt go through
[2019-03-28] MEDS: OLOPATADINE HCL 0.1% OPHTH BOTTLE OP SCH ×2 (08:46→17:26)
--- NOTE | 2019-03-28 12:36 | NUR ---
PT/FAMILY C/O THAT SHE IS HAVING MUSCLE SPASM WITH TWITCHING WHICH IS NOT OBSERVED WHEN I AM AT THE PT'S BEDSIDE.NOTIFIED BEVERLYREIMBURSEMENT DIRECTOR WITH ORDER FOR MG LEVEL AND CARRIED OUT. DR WYMAN SAW THE PT AND MADE AWARE OF PT'S MUSCLE TWITCHING WITH ORDERS TO DC DILAUDID AND HAVE IT CHANGED TO MORPHINE SULFATE IV INSTEAD.
[2019-03-28] MEDS: IPRATROPIUM NEB FS 0.5 MG/2.5 ML AMPUL.NEB NEB SCH ×2 (14:41→20:39)
[2019-03-28 16:00] VITALS: BP 132/63
[2019-03-28] MEDS: Liraglutide (Victoza 3-Pak) 1.8 MG SQ SCH (17:44)
[2019-03-28] MEDS: GLIMEPIRIDE 1 MG TABLET PO SCH (17:53)
[2019-03-28] MEDS: RIVAROXABAN 10 MG TABLET PO SCH (17:54)
--- NOTE | 2019-03-28 18:02 | NUR ---
PT COMFORTABLY LYING IN BED WITH NO S/S OF DISTRESS AND NO C/O MUSCLE TWITCHING EITHER. PT'S DAUGHTER AT THE BEDSIDE.
--- NOTE | 2019-03-28 19:55 | NUR ---
RN NOTES RECEIVED PATIENT AWAKE ALERT ORIENTED X4, STATELESS SPEAKING, KNOWS SOME NAURUAN. SAFETY MEASURES IN PLACE, ASPIRATION PRECAUTION EMPHASIZED, CALL LIGHT WITHIN EASY REACH, IV INTACT AND PATENT, DENIES PAIN WITH A LITTLE DISCOMFORT, REPOSITIONED FOR COMFORT, IMMOBILIZER ON HER LEFT LEG, IN PLACED, ALL NEEDS ANTICIPATED, DAUGHTER AT BEDSIDE. WILL CONTINUE TO MONITOR ACCORDINGLY.
[2019-03-28 20:00] VITALS: BP 125/88
[2019-03-28 20:16] VITALS: BP 134/77
--- NOTE | 2019-03-28 20:35 | NUR ---
RN NOTES PATIENT'S DAUGHTER ZORAIDA IS REQUESTING TO CHANGE THE ANTIBIOTIC ANCEF TO OTHER TYPE OF ANTIBIOTIC,DAUGHTER THINKS THAT IS CAUSING HER MOM TO HAVE MUSCLE TWITCHING. ASSESSED PATIENT, NO SIGNS OF ACUTE DISTRESS, NO SOB, NO RASHES, DENIES ITCHINESS AT THIS TIME. INFORMED DR. CLAYTON. TO GIVE THE NEXT DOSE AND OBSERVE FOR ANY ADVERSE REACTION, AND FOLLOW UP WITH BEVERLY LITTLE NP TOMORROW. PER DR. CLAYTON.
[2019-03-28] MEDS: LATANOPROST EYE DROP 0.005% 2.5 ML BOTTLE OP SCH (21:15)
[2019-03-28] MEDS: MORPHINE SULFATE INJ 2 MG/ML DISP.SYRIN IV PRN (23:21)
[2019-03-29] MEDS: IPRATROPIUM NEB FS 0.5 MG/2.5 ML AMPUL.NEB NEB SCH ×7 (00:15→23:46)
[2019-03-29 04:10] VITALS: BP 132/63
[2019-03-29] MEDS: BLOOD SUGAR DIAGNOSTIC 1 EACH STRIP IN SCH ×4 (06:28→21:06)
[2019-03-29] MEDS: INSULIN REGULAR, HUMAN 100 UNIT/ML 3 ML VIAL SQ PRN ×4 (06:29→21:07)
--- NOTE | 2019-03-29 06:33 | NUR ---
RN NOTES ALL NEEDS ATTENDED AND MET, ABLE TO REST AND SLEPT AT INTERVALS, SAFETY MEASURES IN PLACE, ASPIRATION PRECAUTION EMPHASIZED, CALL LIGHT WITHIN REACH, DAUGHTER ZORAIDA AT BEDSIDE, PATIENT DENIES ANY PAIN, WITH SLIGHT DISCOMFORT NOTED, REPOSITIONED EVERY 2 HOURS, MORNING CARE DONE, WILL ENDORSE TO AM NURSE FOR CONTINUITY OF CARE.
[2019-03-29 07:03] LABS: CALCIUM, SERUM 8.8 mg/dL (8.5-10.1); CREATININE 1.1 mg/dL (0.6-1.3); POTASSIUM 4.1 mmol/L (3.5-5.1)
--- NOTE | 2019-03-29 07:22 | NUR ---
MS RN OPENING NOTES RECEIVED PT IN BED, AWAKE, A/OX4. GAMBIAN SPEAKING, BUT CAN UNDERSTAND AND SPEAK A LITTLE SETSWANA. PT ON SUPPLEMENTARY OXYGEN AT 2LPM VIA NC, WITH NO ACUTE RESPIRATORY DISTRESS NOTED. PT DENIES ANY PAIN AND DISCOMFORT AT THE THIS TIME. PIV TO LEFT WRIST G24, FLUSHED WITH NS, INTACT AND OPERATIONAL. FC IN PLACE, WITH CLEAR YELLOW URINE IN THE BAG. PT KEPT COMFORTABLE. PT'S BED IN LOWEST LOCKED POSITION WITH SR X3. CALL LIGHT KEPT WITHIN REACH. WILL CONTINUE PLAN OF CARE.
[2019-03-29 07:30] VITALS: BP 136/66
[2019-03-29] MEDS: DOCUSATE SODIUM 100 MG CAPSULE PO SCH ×2 (08:00→17:45)
[2019-03-29] MEDS: PANTOPRAZOLE 40 MG TABLET.DR PO SCH ×2 (08:01→17:45)
[2019-03-29] MEDS: Linaclotide (Linzess) 145 MCG PO SCH (08:01)
[2019-03-29] MEDS: FOLIC ACID 1 MG TABLET PO SCH (08:01)
[2019-03-29] MEDS: SPIRONOLACTONE 25 MG TABLET PO SCH (08:01)
[2019-03-29] MEDS: ropiniROLE 0.5 MG TABLET PO SCH ×3 (08:02→17:45)
[2019-03-29] MEDS: CARVEDILOL 6.25 MG TABLET PO SCH ×2 (08:02→20:20)
[2019-03-29] MEDS: FLECAINIDE ACETATE (100 MG) 100 MG TABLET PO SCH ×2 (08:02→17:45)
[2019-03-29] MEDS: ATORVASTATIN 10 MG TABLET PO SCH (08:03)
[2019-03-29] MEDS: MORPHINE SULFATE INJ 2 MG/ML DISP.SYRIN IV PRN (08:08)
[2019-03-29] MEDS: OLOPATADINE HCL 0.1% OPHTH BOTTLE OP SCH ×2 (08:14→17:00)
--- NOTE | 2019-03-29 09:40 | NUR ---
MS RN NOTES SEEN AND EVALUATED BY PA/CC, NO NEW ORDERS NOTED AT THIS TIME.
[2019-03-29 09:46] LABS: ABG BASE EXCESS 1.1 mmol/L; ABG OXYGEN SATURATION 92.5 % (92.0-98.5); ABG PCO2 46.1 mmHg (35.0-45.0); ABG PO2 70.5 mmHg (75.0-100.0); AaDO2 132.7 mmHg; COHb 0.5 % (0.5-1.5); MetHb 0.3 % (0.0-1.5); O2Hb 91.8 % (94.0-97.0); SITE, ABG Left Radial; VENT MODE, BG NASAL CANNULA
--- NOTE | 2019-03-29 09:54 | NUR ---
MS RN NOTES SEEN AND EVALUATED BY RODNEY GUERRA/NIRMALA, NO NEW ORDERS NOTED.
--- NOTE | 2019-03-29 10:12 | NUR ---
MS RN NOTES DAUGHTER/CHRISTINE PRESENT AT BEDSIDE AND REQUESTING FOR RIGHT XRAY DUE TO CONCERN ABOUT RIGHT KNEE PAIN WELL. HOSPITALIST/JAVA SPRING DEVELOPER/NN MADE AWARE AND OKAY WITH IT. ORDER PLACED.
[2019-03-29 10:26] LABS: *SPE A/G RATIO 0.7 (0.7-1.7); *SPE ALBUMIN 2.3 g/dL (2.9-4.4); *SPE ALPHA-1-GLOBULIN 0.5 g/dL (0.0-0.4); *SPE ALPHA-2-GLOBULIN 1.1 g/dL (0.4-1.0); *SPE BETA GLOBULIN 0.8 g/dL (0.7-1.3); *SPE GLOBULIN, TOTAL 3.1 g/dL (2.2-3.9); *SPE M-SPIKE Not Observed g/dL (Not Observed); *SPEGAMMA GLOBULIN 0.7 g/dL (0.4-1.8)
--- NOTE | 2019-03-29 12:17 | NUR ---
MS RN NOTES PT'S DAUGHTER/TYRELL AT BEDSIDE PREFERS ANCEF TO BE GIVEN AFTER PT EAT LUNCH.
[2019-03-29] MEDS: HYDROCODONE/APAP 10/325MG 1 EA TABLET PO PRN (12:24)
--- NOTE | 2019-03-29 12:30 | NUR ---
MS RN NOTES HOSPITALIST/NN IN THE UNIT SPOKE TO FAMILY REGARDING CXR AND RIGHT KNEE XRAY RESULT. NO NEW ORDERS NOTED AT THIS TIME. WILL CONTINUE TO MONITOR.
[2019-03-29] MEDS: CEFAZOLIN 1 GM in IV D5W 50 ML IV SCH ×2 (12:52→23:02)
[2019-03-29] MEDS: HYDROCODONE/APAP 5/325MG 1 EACH TABLET PO PRN (13:28)
[2019-03-29 16:25] VITALS: BP 130/76
[2019-03-29] MEDS: Liraglutide (Victoza 3-Pak) 1.8 MG SQ SCH (16:37)
--- NOTE | 2019-03-29 17:09 | NUR ---
MS RN NOTES LAB CALLED [facility] OF 12.5, NOTIFIED HOSPITALIST/NN, NO NEW ORDERS NOTED AT THIS TIME.
[2019-03-29] MEDS: RIVAROXABAN 10 MG TABLET PO SCH (17:45)
[2019-03-29] MEDS: GLIMEPIRIDE 1 MG TABLET PO SCH (17:46)
--- NOTE | 2019-03-29 18:41 | NUR ---
MS RN CLOSING NOTES PT REMAINS IN BED, AWAKE, A/OX4. TUNISIAN SPEAKING, BUT CAN UNDERSTAND AND SPEAK A LITTLE FIJIAN. PT ON SUPPLEMENTARY OXYGEN AT 2LPM VIA NC, WITH NO ACUTE RESPIRATORY DISTRESS NOTED. PT DENIES ANY PAIN AND DISCOMFORT AT THIS TIME. PIV TO LEFT HAND G24, FLUSHED WITH NS, INTACT AND OPERATIONAL. FC IN PLACE, WITH CLEAR YELLOW URINE IN THE BAG WITH TOTAL OUT PUT OF 1100ML. PT KEPT COMFORTABLE. ALL NEEDS AND CARE ATTENDED. PT'S BED IN LOWEST LOCKED POSITION WITH SR X3. CALL LIGHT KEPT WITHIN REACH. WILL ENDORSE TO INCOMING NIGHT NURSE FOR JOSE.
--- NOTE | 2019-03-29 19:00 | NUR ---
MS RN OPENING NOTES: RECEIVED PT ON 2LPM VIA NC AND IS TOLERATING WELL. NO SOB NOTED. NO S/S OF DISTRESS. DTR AT BEDSIDE. PT APPEARS TO BE LETHARGIC AT THIS TIME BUT IS EASILY AROUSABLE. PT IS NIGERIAN SPEAKING ONLY BUT CAN SPEAK AND UNDERSTAND SOME HEBREW. PT IS A/OX3. PT HAS MATTHEWS CATH AND IS ATTACHED TO DRAINAGE BAG WITH URINE DRAINING. PT HAS IV ON L HAND #24 G AND IS PATENT AND INTACT. CURRENTLY H/L. BED KEPT IN LOW, LOCKED POSITION, AND SIDE RAILS X 2UP. WILL CONTINUE TO MONITOR PT. BED ALARM ACTIVATED WELL.
[2019-03-29 20:47] VITALS: BP 115/66
[2019-03-29] MEDS: LATANOPROST EYE DROP 0.005% 2.5 ML BOTTLE OP SCH (21:01)
--- NOTE | 2019-03-29 21:15 | NUR ---
MS RN NOTES: BLOOD SUGAR THIS PM WAS 172. 3 UNITS OF INSULIN WAS ADMINISTERED. SNACKS ADMINISTERED. SNACKS AND FOOD AT BEDSIDE WELL. WILL CONTINUE TO MONITOR.
[2019-03-30] MEDS: HYDROCODONE/APAP 5/325MG 1 EACH TABLET PO PRN ×3 (00:17→17:33)
--- NOTE | 2019-03-30 00:19 | NUR ---
MS RN NOTES: PT COMPLAINING OF 7/10 L LEG ACHY PAIN. PT WAS ADMINISTERED NORCO 5 PO. WILL CONTINUE TO MONITOR.
[2019-03-30] MEDS: IPRATROPIUM NEB FS 0.5 MG/2.5 ML AMPUL.NEB NEB SCH ×5 (03:00→19:22)
[2019-03-30] MEDS: INSULIN REGULAR, HUMAN 100 UNIT/ML 3 ML VIAL SQ PRN ×3 (06:34→16:48)
[2019-03-30] MEDS: BLOOD SUGAR DIAGNOSTIC 1 EACH STRIP IN SCH ×3 (06:35→16:50)
--- NOTE | 2019-03-30 06:37 | NUR ---
MS RN NOTES: BLOOD SUGAR THIS AM WAS 159. 2 UNITS OF INSULIN WAS ADMINISTERED. JELLO SNACK PROVIDED TO PT AND IS UP AND WATCHING TELEVISION AT THIS TIME. PT ALSO REFUSING TO BE CLEANED THIS AM. PT WOULD LIKE TO WAIT FOR HER DAUGHTER TO COME.
--- NOTE | 2019-03-30 06:40 | NUR ---
MS COPELAND CLOSING NOTES: ALL NEEDS WERE ATTENDED AND ANTICIPATED FOR. PT TURNED AND REPOSITIONED Q2HRS. PT OFFERED TO BE CLEANED THIS AM BUT WOULD LIKE TO WAIT FOR HER DAUGHTER TO ARRIVE. IV ON L HAND REMAINS INTACT AND IS CURRENTLY H/L. MATTHEWS CATH REMAINS IN PLACE WELL AND IS DRAINING URINE. OUTPUT WAS 1200ML FOR THE SHIFT. PT IS AWAKE AND EATING A SNACK AND WATCHING TELEVISION IN LAO. PT IS LAO SPEAKING ONLY BUT CAN MAKE HER NEEDS KNOWN. PT OFFERED PAIN MEDS THIS AM BUT PT HAS NO PAIN AT THE TIME. BED KEPT IN LOW, LOCKED POSITION, AND SIDE RAILS X 2UP. BED ALARM ACTIVATED. WILL ENDORSE TO AM NURSE FOR JOSE. Addendum: 03/30/19 at 0642 by MUKESH SAMUELS RN PT REMAINS ON 3LPM VIA NC AND IS TOLERATING WELL.
[2019-03-30 07:20] LABS: POTASSIUM 3.8 mmol/L (3.5-5.1)
--- NOTE | 2019-03-30 07:30 | NUR ---
M/S RN OPENING NOTES RECEIVED PT ON BED A/OX4, SAMOAN AND MONTSERRATIAN SPEAKING. RESPIRATION EVEN AND NON LABORED WITH NO ACUTE RESPIRATORY DISTRESS, ON O2 AT 3LPM VIA NASAL CANNULA, TOLERATED WELL, HEAD OF BED ELEVATED. SKIN WARM TO TOUCH AND DRY, RE-POSITION Q2H TOLERATED, TO DO BED BATH TODAY WHEN DAUGHTER ARRIVES PER PATIENT. C/O OF LEG PAIN 07/16, TO GIVE MEDICATION ORDERED. ABD SOFT AND NON DISTENDED WITH ACTIVE BOWEL SOUNDS, FC WITH YELLOW URINE. IV SITE AT LEFT HAND #24 H/L, PATENT IN FLUSHING. BED ALARM ON, LOW POSITION. ALL CONCERNS ATTENDED AT THIS TIME. WILL CONTINUE TO EVALUATE CARE.
[2019-03-30] MEDS: Linaclotide (Linzess) 145 MCG PO SCH (07:50)
[2019-03-30 08:00] VITALS: BP 126/71
[2019-03-30] MEDS: ATORVASTATIN 10 MG TABLET PO SCH (08:21)
[2019-03-30] MEDS: PANTOPRAZOLE 40 MG TABLET.DR PO SCH ×2 (08:21→16:49)
[2019-03-30] MEDS: OLOPATADINE HCL 0.1% OPHTH BOTTLE OP SCH ×2 (08:21→16:44)
[2019-03-30] MEDS: FOLIC ACID 1 MG TABLET PO SCH (08:21)
[2019-03-30] MEDS: SPIRONOLACTONE 25 MG TABLET PO SCH (08:21)
[2019-03-30] MEDS: CARVEDILOL 6.25 MG TABLET PO SCH ×2 (08:21→20:34)
[2019-03-30] MEDS: ropiniROLE 0.5 MG TABLET PO SCH ×3 (08:21→16:50)
[2019-03-30] MEDS: FLECAINIDE ACETATE (100 MG) 100 MG TABLET PO SCH ×2 (08:21→16:48)
[2019-03-30] MEDS: DOCUSATE SODIUM 100 MG CAPSULE PO SCH ×2 (08:21→16:49)
--- NOTE | 2019-03-30 08:47 | NUR ---
M/S RN NOTES PT REPOSITIONED TO RIGHT SIDE LYING POSITION. TOLERATED WELL.
--- NOTE | 2019-03-30 09:05 | NUR ---
M/S RN NOTES PT SEEN AND EVALUATED BY DR. LITTLE, NEW ORDER FOR DISCHARGE TO SNF.
--- NOTE | 2019-03-30 09:20 | NUR ---
M/S RN NOTES PT SEEN BY DR. COTA
--- NOTE | 2019-03-30 09:53 | NUR ---
M/S RN NOTES PT SEEN BY DR. LITTLE WITH DAUGHTER LEANNE ON BEDSIDE. NEW ORDER OBTAINED FOR MATTHEWS CATHETER X 1 MORE WEEK WHEN IN SNF. DISCUSSED THE IMPORTANCE OF OOB 2-3 TIMES A DAY TO CHAIR. MIRALAX DAILY. WINDOW SHADE INSTALLER CONSULT FOR DISCHARGE PLACEMENT. ALL CONCERNS ATTENDED. WILL FF UP ON CARE
[2019-03-30] MEDS ORDERED: POLYETHYLENE GLYCOL 3350 17 GM POWD.PACK PO SCH (09:58)
--- NOTE | 2019-03-30 10:50 | NUR ---
M/S RN NOTES PROVIDED BED BATH, PT TOLERATED WELL. SKIN ASSESSMENT PROVIDED WITH NO NEW OPEN SKIN BREAKDOWN. PT COMFORTABLE AND WANTED TO SLEEP AT THIS TIME. CALL LIGHT WITHIN REACH
[2019-03-30] MEDS: CEFAZOLIN 1 GM in IV D5W 50 ML IV SCH (11:53)
[2019-03-30] MEDS: HYDROCODONE/APAP 10/325MG 1 EA TABLET PO PRN ×2 (13:16→19:39)
--- NOTE | 2019-03-30 14:30 | NUR ---
M/S RN NOTES YONATAN AND BEVERLY LITTLE NOTIFIED ABOUT FAMILY'S CONCERN. REFUSING DISCHARGE TODAY DUE TO EXISTING PAIN EVEN NORCO IS GIVEN, REHAB PLACEMENT, UTI ATB ([facility] PREFERRED CIPRO VS KEFLEX). YONATAN AND BEVERLY TALKED TO DAUGHTER HUGH. ALL CONCERNS ATTENDED. HUGH AND LEANNE WILL TALK ABOUT THE PLAN OF CARE AND WILL NOTIFY HEALTH CARE PROVIDERS FOR CONCERNS.
--- NOTE | 2019-03-30 15:14 | NUR ---
M/S RN NOTES YONATAN MADRIGAL IS WITH DISCUSSION WITH HUGH REGARDING DC PLANNING
[2019-03-30 16:00] VITALS: BP 108/61
[2019-03-30] MEDS: RIVAROXABAN 10 MG TABLET PO SCH (16:49)
[2019-03-30] MEDS: Liraglutide (Victoza 3-Pak) 1.8 MG SQ SCH (16:50)
--- NOTE | 2019-03-30 17:00 | NUR ---
M/S RN NOTES REPORT GIVEN TO YASSINE COPELAND FROM [facility]
[2019-03-30] MEDS: GLIMEPIRIDE 1 MG TABLET PO SCH (17:06)
--- NOTE | 2019-03-30 17:33 | NUR ---
M/S RN NOTES MEDICATION VALUABLES GIVEN TO JONELLE PERDOMO (JARDIANCE, LINZESS, METFORMIN AND VIZTEC)
--- NOTE | 2019-03-30 19:26 | NUR ---
M/S RN CLOSING NOTES PT A/OX4, RESPONSIVE TO STIMULI. ASSESSED NO SOB, INSTRUCTED WITH THE IMPORTANCE OF USING SPIROMETER IN SNF. ABD SOFT WITH ACTIVE BOWEL SOUNDS, FC YELLOW URINE OUTPUT. SKIN KEPT WARM AND DRY. WAITING FOR APICULTURE TEACHER TO BE DISCHARGED TO [facility]. PT WITH ON AND OFF PAIN TO LEFT HIP DUE TO SURGERY. EXIT CARE PROVIDED TO PT AND FAMILY. ALL CONCERNS ATTENDED. ENDORSED PT CARE TO NEXT SHIFT.
[2019-03-30 20:34] VITALS: BP 114/54
--- NOTE | 2019-03-30 20:50 | NUR ---
Daughter at the bedside. Patient is alert and orientated X4 both are aware she is being transfered to [facility] Patient eating her dinner. [facility] here paper work ready
[2019-04-01 08:06] LABS: PTH, INTACT 92 pg/mL (15-65)
== END 2019-03-30 20:50 | DRG 480 ==
LOC: ER 12:00 → MEDSG2 14:11
PROVIDERS: ADMIT Internal Medicine; ATTEND Nurse Practitioner Acute Care
PROC: 0QSC06Z Reposition Left Lower Femur with Intramedullary Internal Fixation Device, Open Approach (ICD-10-PCS; principal; 2019-03-25)
DX: S72.92XA Unspecified fracture of left femur, initial encounter for closed fracture (principal); N17.0 Acute kidney failure with tubular necrosis; E44.0 Moderate protein-calorie malnutrition; E66.2 Morbid (severe) obesity with alveolar hypoventilation; E87.1 Hypo-osmolality and hyponatremia; D68.69 Other thrombophilia; N39.0 Urinary tract infection, site not specified; Z68.42 Body mass index [BMI] 45.0-49.9, adult; L03.116 Cellulitis of left lower limb; W18.30XA Fall on same level, unspecified, initial encounter; Y92.89 Other specified places as the place of occurrence of the external cause; E11.40 Type 2 diabetes mellitus with diabetic neuropathy, unspecified; I48.0 Paroxysmal atrial fibrillation; B96.1 Klebsiella pneumoniae [K. pneumoniae] as the cause of diseases classified elsewhere; E78.5 Hyperlipidemia, unspecified; E86.1 Hypovolemia; I10 Essential (primary) hypertension; Z79.01 Long term (current) use of anticoagulants; Z85.3 Personal history of malignant neoplasm of breast; Z90.11 Acquired absence of right breast and nipple; Z79.84 Long term (current) use of oral hypoglycemic drugs; I48.91 Unspecified atrial fibrillation; G25.81 Restless legs syndrome; I89.0 Lymphedema, not elsewhere classified
CPT/HCPCS: 36415; 36600; 71045-TC; 72170-TC; 73552; 73560-TC; 73564-TC; 80048-TC; 80053-TC; 80061-TC; 80076-TC; 80202-TC; 81000-TC; 82550-TC; 82570-TC; 82803-TC; 82962-TC; 83735-TC; 83935-TC; 83970; 84100-TC; 84155; 84155-TC; 84165; 84300-TC; 84443-TC; 84550-TC; 85025-TC; 85730-TC; 86850-TC; 87081-TC; 87086-TC; 87186-TC; 94799-TC; 97110-TC; 97112-TC; 97530-TC; A4216; G0378; J0690; J1170; J1200; J1815; J2270; J2405; J2704; J2710; J2765; J3010; J3370; J3490; J7030; J7042; J7050; J7060

== ENCOUNTER 2019-11-03 09:42 | Inpatient (IN) | payer MEDICARE, OTHER ==
[~2019-11-03] VITALS: Ht 162.6 cm; Wt 110.2 kg
[~2019-11-03 09:42] MED LIST: ATOR20TA PO; BUME2TAB7 PO; CARV6.25 PO; EMPA25TA PO; ESOM40CA PO; FLEC100T2 PO; FOLI0.4T2 PO; GLIM1TAB18 PO; LINA145C PO; LIRA0.6P2 SQ; OLOP2.5D5 EACHEYE; PREG50CA PO; RIVA10TA PO; ROPI2TAB7 PO; SPIR25TA6 PO; TRAV5DRO EACHEYE
--- NOTE | 2019-11-03 09:50 | NUR ---
[id number] HOME FOR AMS, +R SIDED FACIAL DROOP SINCE 0800. BG 200 SAFETY ASSISTANT LAST KNOWN WELL PER EMS WAS LAST NIGHT. PATIENT CONFUSED, SCREAMING FOR HER DAUGHTER, CHANGED INTO GOWN, VOMITING, DR. QUINN AT BEDSIDE FOR EVAL.
[2019-11-03] MEDS ORDERED: ONDANSETRON HCL/PF 4 MG/2 ML VIAL ONE (09:52)
[2019-11-03] MEDS ORDERED: ONDANSETRON HCL/PF - ER 4 MG/2 ML VIAL IV ONE (10:00)
[2019-11-03 10:14] LABS: BASOPHILS # (AUTO) 0.1 /CMM (0.0-0.2); BASOPHILS % (AUTO) 0.5 % (0.0-2.0); EOSINOPHILS % (AUTO) 2.3 % (0.0-6.0); HEMATOCRIT 50 % (33-45); HEMOGLOBIN 15.6 g/dL (11.5-14.8); LYMPHOCYTES # (AUTO) 2.5 /CMM (0.8-4.8); LYMPHOCYTES % (AUTO) 21.9 % (20.0-44.0); MEAN CORPUSCULAR HGB CONC 32 g/dl (31.0-36.0); MEAN CORPUSCULAR VOLUME 82 fL (82-100); MONOCYTES # (AUTO) 0.7 /CMM (0.1-1.30); MONOCYTES % (AUTO) 5.8 % (2.0-12.0); NEUTROPHILS % (AUTO) 69.5 % (43.0-81.0); PLATELET COUNT (AUTO) 229 /CMM (150-450); RED BLOOD CELL COUNT(AUTO) 6.07 MIL/uL (4.0-5.2); WHITE BLOOD COUNT (AUTO) 11.5 K/uL (4.3-11.0)
[2019-11-03 10:22] LABS: APPEARANCE,URINE CLEAR (CLEAR); BILIRUBIN,URINE NEGATIVE (NEGATIVE); BLOOD, URINE SMALL Ery/uL (NEGATIVE); COLOR,URINE YELLOW (YELLOW); KETONES,URINE NEGATIVE (NEGATIVE); LEUKOCYTE ESTERASE ,URINE TRACE (NEGATIVE); NITRITE, URINE POSITIVE (NEGATIVE); PROTEIN,URINE NEGATIVE (NEGATIVE); UGLUCOSE >=1000 mg/dL (NEGATIVE); UROBILINOGEN,URINE 0.2 EU/dL (0.2)
[2019-11-03] MEDS ORDERED: CHOL100040 PO (10:22)
[2019-11-03] MEDS ORDERED: METF-440 PO (10:22)
[2019-11-03] MEDS ORDERED: CRAN450C PO (10:22)
[2019-11-03] MEDS ORDERED: CYAN-51 PO (10:22)
[2019-11-03] MEDS ORDERED: BACL20TA PO (10:22)
[2019-11-03] MEDS ORDERED: FERR325T23 PO (10:22)
[2019-11-03] MEDS ORDERED: MAGN400T26 PO (10:22)
[2019-11-03] MEDS ORDERED: CRAN200C5 PO (10:22)
[2019-11-03] MEDS ORDERED: OMEG1CAP PO (10:22)
[2019-11-03 10:24] LABS: CALCIUM, SERUM 9.9 mg/dL (8.5-10.1); CREATININE 0.9 mg/dL (0.6-1.3); POTASSIUM 3.7 mmol/L (3.5-5.1)
[2019-11-03] MEDS ORDERED: LACT1CAP71 PO (10:34)
[2019-11-03 10:38] LABS: ALBUMIN 3.2 g/dL (3.4-5.0); BILIRUBIN,DIRECT 0.2 mg/dL (0.0-0.2); BILIRUBIN,TOTAL 0.5 mg/dL (0.2-1.0); TOTAL PROTEIN, SERUM 7.4 g/dL (6.4-8.2)
[2019-11-03 10:40] LABS: WBC,URINE 21-50 /HPF (0-3)
[2019-11-03 10:42] LABS: BACTERIA,URINE Many /HPF (None Seen); SQUAMOUS EPITHELIAL CELL,UR Few /HPF (None Seen)
--- NOTE | 2019-11-03 10:55 | NUR ---
MOVE SHEET SUBMITTED
--- NOTE | 2019-11-03 10:55 | NUR ---
PATIENT BROUGHT BACK BY MARILEE BEDOLLA VIA BEBO FROM CT SCAN
[2019-11-03] MEDS ORDERED: CEFTRIAXONE 1GM BAG (ER ONLY) 50 ML IV ONE (10:56)
[2019-11-03] MEDS ORDERED: IV NS 0.9% 500 ML BAG IV ONE (11:00)
[2019-11-03] MEDS ORDERED: CEFTRIAXONE 1GM BAG (ER ONLY) 1 GM/50 ML PIGGYBACK IV ONE (11:00)
[2019-11-03] MEDS ORDERED: CEFTRIAXONE 1 G in IV D5W 50 ML IV ONE (11:00)
[2019-11-03] MEDS ORDERED: MAGNESIUM HYDROXIDE 30 ML UDC PO PRN (12:00)
[2019-11-03] MEDS ORDERED: ONDANSETRON HCL/PF 4 MG/2 ML VIAL IVP PRN (12:00)
[2019-11-03] MEDS ORDERED: MAG HYDROX/AL HYDROX/SIMETH 30 ML UDC PO PRN (12:00)
[2019-11-03] MEDS ORDERED: DEXTROSE 50%-WATER 50 ML DISP.SYRIN IV PRN (12:00)
[2019-11-03] MEDS ORDERED: Z GUARD REMEDY 2 OZ OINT TP PRN (12:00)
[2019-11-03] MEDS ORDERED: HYDROCODONE/APAP 5/325MG TABLET PO PRN (12:00)
--- NOTE | 2019-11-03 14:03 | NUR ---
RAPID COVID SWAB DONE AND SENT TO LAB.
--- NOTE | 2019-11-03 15:39 | NUR ---
LAB CALLED COVID-19 NEG. (-)
--- NOTE | 2019-11-03 16:54 | NUR ---
REPORT GIVEN TO ENZO COPELAND FOR JOSE.
[2019-11-03] MEDS: BLOOD SUGAR DIAGNOSTIC 1 EACH STRIP VI SCH ×3 (17:30→21:31)
--- NOTE | 2019-11-03 17:30 | NUR ---
POLLUTION CONTROL CHEMIST NOTE RECEIVED PATIENT FROM ER WITH DX UIT UNDER CARE DR MASSEY, AWAKE BUT VERY CONFUSED , ON2L NC NO SON SATURATION 92% , ON TELE MONITOR AFIB HR 108 , WITH MATTHEWS CATH TO GRAVITY , VS TAKEN, HOSPITAL ORIENTATION DONE, LT AV HL INTACT AND FLUSHED WELL , BED IN LOWEST AND LOCKED POSITION, WILL CONT TO MONITOR
[2019-11-03 17:35] VITALS: BP 126/47
[2019-11-03] MEDS: IV NS 0.9% 1,000 ML IV PRN (18:14)
[2019-11-03] MEDS: FLECAINIDE ACETATE (100 MG) 100 MG TABLET PO SCH (18:25)
--- NOTE | 2019-11-03 18:30 | NUR ---
YOUTH SERVICES SPECIALIST NOTE CALLED TO DR MASSEY NOTIFIED THAT PATIENT VERY AGITATED AND YELLING OUT WITH ORDER GIVE ATIVAN ,ORDER CARRIED OUT
[2019-11-03] MEDS: LORAZEPAM INJ 2 MG/ML VIAL IV PRN (18:55)
[2019-11-03] MEDS ORDERED: LORAZEPAM 1 MG TABLET PO PRN (19:00)
--- NOTE | 2019-11-03 19:05 | NUR ---
ELEMENT[employer]OL BAND DIRECTOR NOTE ATIVAN 0.5 MG IVP GIVEN ORDERED BP 125/78 SATURATION 92%, WILL MONITOR
--- NOTE | 2019-11-03 19:30 | NUR ---
telecommunications sales representative opening note received patient in bed. patient is alert, can answer simple questions, mainly nauruan speaking. on oxygen 3l/min via nasal cannula, respirations are even and unlabored. no s/s sob noted. no s/s pain noted. external tele monitor reads sinus rhythm he 93. in no apparent distress. iv access in LAC#18 running ns @75ml/hr. cherry catheter is present, draining to gravity, cloudy. bed is low and locked, hob elevated in semi fowlers, side rials up x2. call light within reach. daughter at bedside going home now. will continue to monitor With cathleen Sánchez RN.
[2019-11-03] MEDS ORDERED: ZOLPIDEM TARTRATE 5 MG TABLET PO PRN (22:00)
--- NOTE | 2019-11-03 23:00 | NUR ---
RECEIVED REPORT FROM DINORAH CABELLO FOR JOSE.
--- NOTE | 2019-11-03 23:15 | NUR ---
telephoner note- JOSE transfer of care given to Sharon COPELAND.
--- NOTE | 2019-11-03 23:59 | NUR ---
TELE/RN NOTES RECEIVED PATIENT IN BED, AWAKE, ABLE TO CALL FOR HELP AND ASSISTED BY PROVIDING SOME WATER, REQUIRE FREQUENT ASSISTANCE TO KEEP PATIENT LESS AGITATED, LAST ATIVAN GIVEN 5 HRS. AGO, DAUGHTER INVOLVED WITH CARE, TO MONITOR ON NC AT 2 LITER, CONFUSED AND FORGETFUL , WITH MATTHEWS CATHETER DRAINING URINE, MONITOR FOR ANY S/S OF HYPO/HYPERGLYCEMIA. BED LOCKED, CALL LIGHTS WITHIN REACH. PROVIDED SOME WATER.KEEP COMFORTABLE, NEEDED MEDICATION ATIVAN TO GIVE ONCE IT IS DUE.
[2019-11-04] MEDS: LORAZEPAM INJ 2 MG/ML VIAL IV PRN ×2 (01:09→08:16)
--- NOTE | 2019-11-04 01:18 | NUR ---
TELE/RN NOTES PATIENT YELLS FOR WATER AND WANT TO DRINK WATER,ABLE TO STATE NAME BUT WITH CONSTANT NEED TO BE REORIENTED AND ASSISTED TO REMAIN CALM, NEEDED MEDICATION ATIVAN IV 0.25ML GIVEN AND WASTED THE REMAINDER WITH ANOTHER RN, DAUGHTER WAS ON THE PHONE AND REPORTED MOTHERS CONDITION AND MADE AWARE OF ATIVAN TO BE GIVEN WILL MONITOR.
--- NOTE | 2019-11-04 06:54 | NUR ---
TELE/RN CLOSING NOTES ATTENDED ALL NEEDS,KEPT COMFORTABLE, CALLS FOR HELP AND MONITORED, WILL ENDORSE TO AM RN FOR JOSE.
[2019-11-04 07:27] LABS: BASOPHILS # (AUTO) 0.1 /CMM (0.0-0.2); BASOPHILS % (AUTO) 0.6 % (0.0-2.0); EOSINOPHILS % (AUTO) 0.8 % (0.0-6.0); HEMATOCRIT 45 % (33-45); HEMOGLOBIN 13.9 g/dL (11.5-14.8); LYMPHOCYTES # (AUTO) 2.3 /CMM (0.8-4.8); LYMPHOCYTES % (AUTO) 19.4 % (20.0-44.0); MEAN CORPUSCULAR HGB CONC 31 g/dl (31.0-36.0); MEAN CORPUSCULAR VOLUME 83 fL (82-100); MONOCYTES # (AUTO) 0.8 /CMM (0.1-1.30); MONOCYTES % (AUTO) 6.7 % (2.0-12.0); NEUTROPHILS # (AUTO) 8.7 /CMM (1.8-8.9); NEUTROPHILS % (AUTO) 72.5 % (43.0-81.0); PLATELET COUNT (AUTO) 219 /CMM (150-450); RED BLOOD CELL COUNT(AUTO) 5.44 MIL/uL (4.0-5.2)
--- NOTE | 2019-11-04 07:30 | NUR ---
RN OPENING NOTE RECEIVED PT IN BED. AWAKE ALERT AND ORIENTED ONLY TO SELF. UNABLE TO STATE WHERE SHE IS, TODAYS DATE OR TODAYS YEAR. BURMESE SPEAKING BUT ABLE TO UNDERSTAND SOME MALIAN.NO CARDIAC OR RESPIRATORY DISTRESS NOTED. NO SOB NOTED. SATURATING WELL ON 2L OF O2 VIA NC. ON CARDIAC TELE MONITOR SHOWING AFIB. IV ACCESS NOTED ON L AC G18. IONTACT AND PATENT AND FLUSHING WELL WITH NS RUNNING AT 75ML/HR. TOLERATING IV FLUIDS WELL. SAFETY PRECAUTIONS IN PLACE. BED LOCKED AND IN LOW POSITION. SIDE RAILS UP X 2. BED ALARM ON. CALL LIGHT WITHIN REACH.
[2019-11-04 07:42] LABS: CALCIUM, SERUM 8.8 mg/dL (8.5-10.1); CREATININE 0.8 mg/dL (0.6-1.3); MAGNESIUM 2.3 mg/dL (1.8-2.4); PHOSPHORUS 3.3 mg/dL (2.5-4.9); POTASSIUM 3.8 mmol/L (3.5-5.1)
[2019-11-04] MEDS: BLOOD SUGAR DIAGNOSTIC 1 EACH STRIP VI SCH ×4 (07:53→22:05)
--- NOTE | 2019-11-04 08:00 | NUR ---
DAUGHTER ABBY DAVID CALLED. PROVIDED UPDATE WITH PTS CURRENT CONDITION. PER DAUGHTER SHE WILL BE DROPPING OFF DENTURES AND SOUP FOR PT. INFORMED DAUGHTER THAT PER RN .NET PROGRAMMER, VISITING IN THE UNIT ARE CURRENTLY NOT ALLOWED.
[2019-11-04] MEDS: RIVAROXABAN 10 MG TABLET PO SCH (08:17)
[2019-11-04] MEDS: *INSULIN REGULAR(HUMULIN R)HUM 100 UNIT/ML VIAL SQ PRN (08:56)
[2019-11-04] MEDS ORDERED: ASPIRIN 81 MG TAB.CHEW PO SCH (09:00)
[2019-11-04] MEDS: IV NS 0.9% 1,000 ML IV PRN ×2 (09:43→22:40)
[2019-11-04] MEDS: FLECAINIDE ACETATE (100 MG) 100 MG TABLET PO SCH ×2 (09:56→16:07)
[2019-11-04] MEDS: CEFTRIAXONE 1 G in IV D5W 50 ML IV SCH (10:52)
--- NOTE | 2019-11-04 14:30 | NUR ---
DAUGHTER DAUGHTER SPOKE WITH PT. RN ASSISTED PT WITH HOLDING THE PHONE.
--- NOTE | 2019-11-04 19:30 | NUR ---
RN CLOSING NOTES PT IN BED. AWAKE ALERT AND ORIENTED ONLY TO SELF. UNABLE TO STATE WHERE SHE IS, TODAYS DATE OR TODAYS YEAR. [place] VERDEAN SPEAKING BUT ABLE TO UNDERSTAND SOME BRUNEIAN.NO CARDIAC OR RESPIRATORY DISTRESS NOTED. NO SOB NOTED. SATURATING WELL ON 2L OF O2 VIA NC. ON CARDIAC TELE MONITOR SHOWING AFIB. IV ACCESS NOTED ON L AC G18. INTACT AND PATENT AND FLUSHING WELL WITH NS RUNNING AT 75ML/HR. TOLERATING IV FLUIDS WELL. ALL NEEDS MET AND ATTENDED. ALL DUE MEDS GIVE. NO ASE NOTED, SAFETY PRECAUTIONS IN PLACE. BED LOCKED AND IN LOW POSITION. SIDE RAILS UP X 2. BED ALARM ON. CALL LIGHT WITHIN REACH.
--- NOTE | 2019-11-04 19:35 | NUR ---
RN OPENING NOTE RECEIVED PATIENT IN BED RESTING ALERT ORIENTED X1 VERBALLY RESPONSIVE ON TELE MONITORING NO SOB NOT ACUTE DISTRESS NOTED,ON 2L/OXYGEN VIA NASAL CANNULA, O2:94% IV SITE IS ON LEFT FOREARM INTACT PATENT IV HYDRATION 0.9% NS 75CC/HR RUINING,ON MATTHEWS CATHETER,URINE DRAINING YELLOW AND CLEAR,SIDE RAIL UPX3 CALL LIGHT WITHIN REACH,BED LOCKED AND IN LOW POSITION CONTINUE TO MONITOR.
[2019-11-04] MEDS: INSULIN REGULAR, HUMAN 100 UNIT/ML 3 ML VIAL SQ PRN (22:25)
[2019-11-05] MEDS: ACETAMINOPHEN 325 MG TABLET PO PRN ×2 (01:24→16:51)
--- NOTE | 2019-11-05 07:25 | NUR ---
RN CLOSING NOTE PATIENT REMAINS IN STABLE CONDITION,ALERT ORIENTATED X1-2 VERBALLY RESPONSIVE,NO SOB NOT ACUTE DISTRESS NOTED,ON 2L/MIN OXYGEN VIA NASAL CANNULA 96% ALL DUE MEDS GIVEN MD ORDERED,KEEP CLEAN AND DRY ALL THE TIME,ON MATTHEWS CATHETER,URINE DRAINING YELLOW AND CLEAR,ON IV HYDRATION NS 0.9% 75 CC/HR,KEPT CALL LIGHT WITHIN REACH,ALL NEEDS MET,ENDORSE NEXT COMING SHIFT FOR CONTINUATION OF CARE.
--- NOTE | 2019-11-05 07:57 | NUR ---
WOUND CARE CONSULT: PT PRESENTS WITH SOME DRY WOUNDS ON RT LOWER LEG, REDNESS WITH EDEMA AND TENDERNESS TO BILATERAL LOWER LEGS, SOME REDNESS TO ABDOMINAL/GROIN FOLDS AND LEFT BREASTFOLD, PRESENT ON ADMISSION. RECOMMENDATIONS MADE FOR SKIN PROTECTION. RECOMMEND DPM CONSULT. DR ZARATE NOTIFIED OF CONSULT REQUEST. WILL SEE PRVern GUERRA IN AGREEMENT WITH PLAN OF CARE. PT IS ON [place] CROSSE ISOFLEX LOW AIRLOSS BED.
[2019-11-05] MEDS: CLOTRIMAZOLE 1% 15 GM TUBE TP SCH ×2 (09:00→17:00)
[2019-11-05] MEDS: FLECAINIDE ACETATE (100 MG) 100 MG TABLET PO SCH ×2 (10:33→17:00)
[2019-11-05] MEDS: RIVAROXABAN 10 MG TABLET PO SCH (10:35)
[2019-11-05] MEDS: CEFTRIAXONE 1 G in IV D5W 50 ML IV SCH (11:00)
[2019-11-05] MEDS: BLOOD SUGAR DIAGNOSTIC 1 EACH STRIP VI SCH ×4 (11:53→22:35)
[2019-11-05] MEDS: INSULIN REGULAR, HUMAN 100 UNIT/ML 3 ML VIAL SQ PRN ×2 (11:55→18:17)
--- NOTE | 2019-11-05 18:53 | NUR ---
PATIENT IN BED RESTING. PATIENT IS ALERT AND ORIENTED X4. PATIENT DOES NOT DISPLAY SIGNS AND SYMPTOMS OF DISTRESS OR SHORTNESS OF BREATH. WOUND CONSULT COMPLETE. SPOKE WITH PATIENTS DAUGHTER REGARDING UPDATE. ALL CARE NEEDS MET. PAIN MEDICATION GIVEN FOR PAIN IN THE LEG 11/15. HOMEOSTASIS MAINTAINED AT PATIENTS BASELINE. BED IN LOW POSITION. CALL LIGHT IN REACH. TWO SIDE RAILS UP. WILL GIVE REPORT TO NIGHT NURSE.
[2019-11-05 20:00] VITALS: BP 183/95
[2019-11-05] MEDS ORDERED: hydrALAZINE HCL IV 20 MG VIAL IV PRN (20:00)
--- NOTE | 2019-11-05 20:10 | NUR ---
MS-1/OXYGEN THERAPY TEACHER BP ELEVATED 185/95 [facility] NOTIF[facility] NEW ORDERS FOR PRN ANTIHYPERTENSIVE MEDICATION RECEIVED. WILL CONTINUE TO MONITOR CLOSELY.
--- NOTE | 2019-11-05 20:13 | NUR ---
MS-1/UNIVERSITY EXTENSION SPECIALIST LEFT AC IV INFILTRATED SITE REDDENED. IV DC'D CATH TIP INTACT. EXTREMITY ELEVATED. WILL CONTINUE TO MONITOR.
[2019-11-05] MEDS ORDERED: CLONIDINE HCL 0.1 MG TABLET PO PRN (20:30)
[2019-11-05 21:00] VITALS: BP 158/89
[2019-11-05] MEDS: *INSULIN REGULAR(HUMULIN R)HUM 100 UNIT/ML VIAL SQ PRN (22:39)
[2019-11-06 04:00] VITALS: BP 135/71
[2019-11-06 06:42] LABS: BASOPHILS % (AUTO) 0.5 % (0.0-2.0); EOSINOPHILS % (AUTO) 3.6 % (0.0-6.0); HEMATOCRIT 47 % (33-45); LYMPHOCYTES # (AUTO) 1.9 /CMM (0.8-4.8); LYMPHOCYTES % (AUTO) 22.4 % (20.0-44.0); MEAN CORPUSCULAR HGB CONC 32 g/dl (31.0-36.0); MEAN CORPUSCULAR VOLUME 82 fL (82-100); MONOCYTES # (AUTO) 0.7 /CMM (0.1-1.30); MONOCYTES % (AUTO) 8.5 % (2.0-12.0); NEUTROPHILS # (AUTO) 5.5 /CMM (1.8-8.9); PLATELET COUNT (AUTO) 228 /CMM (150-450); WHITE BLOOD COUNT (AUTO) 8.5 K/uL (4.3-11.0)
[2019-11-06 07:17] LABS: CALCIUM, SERUM 9.4 mg/dL (8.5-10.1); CREATININE 0.6 mg/dL (0.6-1.3); POTASSIUM 4.2 mmol/L (3.5-5.1)
--- NOTE | 2019-11-06 08:07 | NUR ---
MS RN OPENING NOTE RECEIVED PT AWAKE IN BED AT THIS TIME. AOX3-4.PT ABLE TO MAKE NEEDS KNOWN. NO SOB NOTED, NO S/S OF ANY ACUTE DISTRESS NOTED. NO C/O PAIN AT THIS TIME. RESPIRATIONS ARE EVEN AND UNLABORED. IV ACCESS NOTED IN LEFT HAND G#22, PATENT, INTACT AND FLUSHING WELL. MATTHEWS CATHETER IN PLACE, DRAINING TO GRAVITY CLEAR YELLOW URINE OUTPUT. FALL, ASPIRATION AND SAFETY PRECAUTION IN PLACE AND MAINTAINED AT ALL TIMES. BED IN LOWEST LOCKED POSITION, HOB ELEVATED, SIDE RAILS UP X 2, CALL LIGHT WITHIN REACH. WILL CONTINUE TO MONITOR
[2019-11-06] MEDS: BLOOD SUGAR DIAGNOSTIC 1 EACH STRIP VI SCH ×3 (08:26→17:50)
[2019-11-06] MEDS: INSULIN REGULAR, HUMAN 100 UNIT/ML 3 ML VIAL SQ PRN ×3 (09:24→17:53)
[2019-11-06] MEDS: FLECAINIDE ACETATE (100 MG) 100 MG TABLET PO SCH ×2 (09:26→17:54)
[2019-11-06] MEDS: CLOTRIMAZOLE 1% 15 GM TUBE TP SCH ×2 (09:27→17:54)
[2019-11-06] MEDS: RIVAROXABAN 10 MG TABLET PO SCH (09:27)
[2019-11-06] MEDS: ACETAMINOPHEN 325 MG TABLET PO PRN (09:35)
--- NOTE | 2019-11-06 09:40 | NUR ---
PT C/O OF ACHING LEFT FEMUR PAIN ON 04/15. FACIAL GRIMACE NOTED. VS WNL. PER PT REQUEST TYLENOL 650MG Q6HR FOR MILD PAIN WAS ADMINISTERED AT THIS TIME PER ORDER. WILL CONTINUE TO MONITOR
--- NOTE | 2019-11-06 10:00 | NUR ---
ZORAIDA, PT'S DAUGHTER ([phone]) UPDATED ON PT'S CONTITION AT THIS TIME. WILL CONTINUE TO MONITOR
[2019-11-06] MEDS ORDERED: CEPH-570 PO (10:19)
[2019-11-06] MEDS: CEFTRIAXONE 1 G in IV D5W 50 ML IV SCH (11:29)
--- NOTE | 2019-11-06 16:00 | NUR ---
PT PENDING DISCHARGE. MATTHEWS CATHETER D/C AT THIS TIME. WILL CONTINUE TO MONITOR
--- NOTE | 2019-11-06 18:45 | NUR ---
MS RN CLOSING NOTES PT AWAKE IN BED AT THIS TIME. PT REMAINED STABLE THROUGHOUT SHIFT. ALL CARE, NEEDS, MEDICATIONS, PAIN MANAGEMENT AND TREATMENT ADMINISTERED ANTICIPATED PER ORDER. PT PENDING DISCHARGE AT THIS TIME. SAFETY PRECAUTION IN PLACE AND MAINTAINED AT ALL TIMES. BED IN LOWEST LOCKED POSITION, HOB ELEVATED, RAILS UP X 2, CALL LIGHT WITHIN REACH. WILL ENDORSE TO SPEECH AND LANGUAGE SPECIALIST NURSE FOR JOSE
--- NOTE | 2019-11-06 19:40 | NUR ---
PT DISCHARGED RECEIVED PT BEING DISCHARGED TO [facility] WITH PREVIOUS NURSE DINORAH GONZALES AT BEDSIDE. DISCHARGE INSTRUCTIONS PROVIDED. VITAL SIGNS STABLE AT THIS TIME. PT IS AFEBRILE. PT A/O X 4. BEING D/C TO HOME WITH AND DAUGHTER AWAITING VERBALIZED BY PATIENT. IV SITE REMOVED, HELD FOR 1 MINUTE REINFORCED WITH 2X2 GAUZE AND TAPE. NO S/S OF BLEEDING OR INFILTRATION NOTED AT THIS TIME. CHARGE NURSE AWARE. Addendum: 11/06/19 at 2013 by SUNDAY APPAIH RN BELONGINGS ACCOUNTED FOR. WITH PT.
== END 2019-11-06 19:40 | disposition home health service (06) | DRG 689 ==
LOC: ER 09:43 → TELE1 16:44 → MEDSG1 11-05 09:19
PROVIDERS: ADMIT Internal Medicine; ATTEND Internal Medicine
DX: N39.0 Urinary tract infection, site not specified (principal); G93.41 Metabolic encephalopathy; N17.0 Acute kidney failure with tubular necrosis; L03.115 Cellulitis of right lower limb; L03.116 Cellulitis of left lower limb; I10 Essential (primary) hypertension; F03.90 Unspecified dementia, unspecified severity, without behavioral disturbance, psychotic disturbance, mood disturbance, and anxiety; Z86.73 Personal history of transient ischemic attack (TIA), and cerebral infarction without residual deficits; E78.5 Hyperlipidemia, unspecified; E86.0 Dehydration; Z90.11 Acquired absence of right breast and nipple; Z85.3 Personal history of malignant neoplasm of breast; Z79.01 Long term (current) use of anticoagulants; Z87.81 Personal history of (healed) traumatic fracture; E66.01 Morbid (severe) obesity due to excess calories; E11.622 Type 2 diabetes mellitus with other skin ulcer; E11.42 Type 2 diabetes mellitus with diabetic polyneuropathy; I48.91 Unspecified atrial fibrillation; I89.0 Lymphedema, not elsewhere classified; E11.621 Type 2 diabetes mellitus with foot ulcer; L97.519 Non-pressure chronic ulcer of other part of right foot with unspecified severity; M19.90 Unspecified osteoarthritis, unspecified site
CPT/HCPCS: 36415; 70450-TC; 71045-TC; 80048-TC; 80076-TC; 81000-TC; 82962-TC; 83605-TC; 83735-TC; 83880; 84100-TC; 84484-TC; 85025-TC; 85730-TC; 87040-TC; 87081-TC; 87086-TC; 87186-TC; 93307-TC; 93880-TC; 93970-TC; 94799-TC; 97530-TC; C9803-CS; G0378; J0696; J1815; J2060; J2405; J7030; J7040; J7060

== ENCOUNTER 2022-03-16 14:36 | Inpatient (IN) | payer MEDICARE, OTHER ==
[2022-03-16] VITALS (8 sets, daily range): BP systolic 120–152; BP diastolic 64–94
[~2022-03-16] VITALS: Ht 165.1 cm; Wt 137.0 kg
[~2022-03-16 14:36] MED LIST changes: +BACL20TA PO; +CEPH-570 PO; +CHOL100040 PO; +CRAN200C5 PO; +CRAN450C PO; +CYAN-51 PO; +FERR325T23 PO; -FOLI0.4T2 PO; +FOLI0.4T6 PO; +LACT1CAP71 PO; -LINA145C PO; -LIRA0.6P2 SQ; +MAGN400T26 PO; +METF-440 PO; -OLOP2.5D5 EACHEYE; +OMEG1CAP PO; -PREG50CA PO; -ROPI2TAB7 PO; -TRAV5DRO EACHEYE
--- NOTE | 2022-03-16 14:40 | NUR ---
RECEIVED PT 81 YRS OLD FEMAL CAME BY MONET FROM HOME C/O LOW O2 SAT and SOB
--- NOTE | 2022-03-16 14:45 | NUR ---
RT AT BED SIDE PLACE PT ON BIPAP IPAP 20/ EPAP 5 FIO2 100%
[2022-03-16] MEDS ORDERED: FUROSEMIDE 40 MG/4 ML VIAL IV ONE (15:00)
[2022-03-16] MEDS ORDERED: SODIUM BICARBONATE SYR 50 MEQ/50 ML DISP.SYRIN IV ONE (15:00)
[2022-03-16] MEDS ORDERED: CALCIUM CHLORIDE 1,000 MG/10 ML DISP.SYRIN IV ONE (15:00)
[2022-03-16] MEDS ORDERED: ALBUTEROL FS 2.5 MG/3 ML VIAL.NEB NEB ONE (15:00)
[2022-03-16] MEDS ORDERED: FUROSEMIDE 40 MG/4 ML VIAL ONE (15:03)
[2022-03-16] MEDS ORDERED: SODIUM BICARBONATE SYR 50 MEQ/50 ML DISP.SYRIN ONE (15:03)
[2022-03-16] MEDS ORDERED: CALCIUM CHLORIDE 1,000 MG/10 ML DISP.SYRIN ONE (15:04)
--- NOTE | 2022-03-16 15:04 | NUR ---
COVID SWAB COLLECTED AND SENT TO LAB
--- NOTE | 2022-03-16 15:10 | NUR ---
RT NOTE POST ABG RESULTS SHOWN TO DR. DAVILA. PLACED PT ON BIPAP MODE WITH SETTINGS PER MD ORDER. MONITORING CLOSELY FOR ANY CHANGE OF CONDITION. REPEAT ABG IN 1 HOUR. RN NOTIFIED AND AWARE.
--- NOTE | 2022-03-16 15:16 | NUR ---
MOVE SHEET SUBMITTED.
--- NOTE | 2022-03-16 15:29 | NUR ---
[facility] CALLED PLASTERER SPRAY GUN PAGED.
[2022-03-16 15:36] LABS: BASOPHILS # (AUTO) 0.1 K/uL (0.0-0.2); BASOPHILS % (AUTO) 0.7 % (0.0-2.0); EOSINOPHILS % (AUTO) 2.8 % (0.0-6.0); HEMATOCRIT 41 % (33-45); HEMOGLOBIN 12.6 g/dL (11.5-14.8); LYMPHOCYTES % (AUTO) 27.4 % (20.0-44.0); MEAN CORPUSCULAR HGB CONC 31 g/dl (31.0-36.0); MEAN CORPUSCULAR VOLUME 90 fL (82-100); MONOCYTES # (AUTO) 0.7 K/uL (0.1-1.30); MONOCYTES % (AUTO) 8.9 % (2.0-12.0); NEUTROPHILS # (AUTO) 4.5 K/uL (1.8-8.9); NEUTROPHILS % (AUTO) 60.2 % (43.0-81.0); PLATELET COUNT (AUTO) 304 K/uL (150-450); RED BLOOD CELL COUNT(AUTO) 4.54 MIL/uL (4.0-5.2); WHITE BLOOD COUNT (AUTO) 7.5 K/uL (4.3-11.0)
[2022-03-16] MEDS ORDERED: ONDANSETRON HCL/PF 4 MG/2 ML VIAL IVP PRN (16:00)
[2022-03-16] MEDS ORDERED: ALBUTEROL FS 2.5 MG/0.5 ML VIAL.NEB NEB PRN (16:00)
[2022-03-16] MEDS ORDERED: ACETAMINOPHEN 325 MG TABLET PO PRN (16:00)
[2022-03-16] MEDS ORDERED: MORPHINE SULFATE INJ 2 MG/ML DISP.SYRIN IV PRN (16:00)
[2022-03-16] MEDS ORDERED: Z GUARD REMEDY 4 OZ OINT TP PRN (16:00)
[2022-03-16 16:05] LABS: ALANINE AMINOTRANSFERASE 84 U/L (12-78); ALBUMIN 2.9 g/dL (3.4-5.0); ALKALINE PHOSPHATASE 117 U/L (46-116); ASPARTATE AMINOTRANSFERASE 63 U/L (15-37); BILIRUBIN,DIRECT 0.2 mg/dL (0.0-0.2); BILIRUBIN,TOTAL 0.3 mg/dL (0.2-1.0); CALCIUM, SERUM 9.3 mg/dL (8.5-10.1); CARBON DIOXIDE 36 mmol/L (21-32); CHLORIDE 96 mmol/L (98-107); CREATININE 1.4 mg/dL (0.6-1.3); GLUCOSE 144 mg/dL (74-106); POTASSIUM 4.9 mmol/L (3.5-5.1); SODIUM SERUM 135 mmol/L (136-145); TOTAL PROTEIN, SERUM 6.9 g/dL (6.4-8.2); UREA NITROGEN, BLOOD 49 mg/dL (7-18)
[2022-03-16 16:22] LABS: ABG BASE EXCESS 9.7 mmol/L; ABG PCO2 94.4 mmHg (35.0-45.0); ABG PO2 98.1 mmHg (75.0-100.0); COHb 0.7 % (0.5-1.5); MetHb 0.3 % (0.0-1.5); O2Hb 95.8 % (94.0-97.0); SITE, ABG Right Radial
[2022-03-16] MEDS ORDERED: AMIO200T5 PO (16:22)
[2022-03-16] MEDS ORDERED: LEVO-146 PO (16:22)
[2022-03-16] MEDS ORDERED: APIX2.5T PO (16:22)
[2022-03-16] MEDS ORDERED: ESOM20CA37 PO (16:22)
[2022-03-16] MEDS ORDERED: ACET-73 PO (16:22)
[2022-03-16] MEDS ORDERED: LATA2.5D15 EACHEYE (16:22)
[2022-03-16] MEDS ORDERED: METO2.5T2 PO (16:22)
[2022-03-16] MEDS ORDERED: MOUNJARO SUBCUT (16:22)
[2022-03-16] MEDS ORDERED: CYCL30DR OP (16:22)
[2022-03-16] MEDS ORDERED: ICOS1CAP PO (16:22)
[2022-03-16] MEDS ORDERED: INSU100V39 SQ (16:22)
[2022-03-16] MEDS ORDERED: METO25TA4 PO (16:22)
[2022-03-16] MEDS ORDERED: ROPI2TAB7 PO (16:22)
[2022-03-16] MEDS ORDERED: PREG25CA PO (16:22)
[2022-03-16] MEDS ORDERED: LINA145C PO ×2 (16:22)
[2022-03-16] MEDS ORDERED: MEMA10TA56 PO (16:22)
[2022-03-16] MEDS ORDERED: FEBU40TA3 PO (16:22)
[2022-03-16] MEDS ORDERED: Medication Not On Formulary EA (Esomeprazole Mag Trihydrate (Nexium) 40 MG) PO SCH (17:00)
--- NOTE | 2022-03-16 17:40 | NUR ---
BETTYE AT bed side (LEANNE SPENCE and HUGH JAIN [phone]
--- NOTE | 2022-03-16 17:53 | NUR ---
RT NOTE POST ABG RESULTS SHOWN TO DR. DAVILA. INCREASED RR TO 24 AND DECREASE FIO2 TO 80%. MONITORING CLOSELY FOR ANY CHANGES. RN NOTIFIED.
[2022-03-16 17:55] LABS: ABG BASE EXCESS 10.2 mmol/L; ABG PH 7.246 (7.350-7.450); ABG PO2 167.4 mmHg (75.0-100.0); COHb 0.7 % (0.5-1.5); MetHb 0.1 % (0.0-1.5); O2Hb 97.9 % (94.0-97.0); SITE, ABG Left Radial
[2022-03-16] MEDS ORDERED: IPRATROPIUM/ALBUTEROL INHALER IH SCH (18:00)
[2022-03-16] MEDS ORDERED: ALBUTEROL FS 2.5 MG/3 ML VIAL.NEB ONE (18:30)
[2022-03-16] MEDS: FLECAINIDE ACETATE (100 MG) 100 MG TABLET PO SCH (19:28)
--- NOTE | 2022-03-16 19:40 | NUR ---
HAND OFF JAMI COPELAND
--- NOTE | 2022-03-16 20:12 | NUR ---
REPORT GIVEN TO MAYE COPELAND FOR JOSE
[2022-03-16 20:20] LABS: ABG BASE EXCESS 7.9 mmol/L; ABG PCO2 91.5 mmHg (35.0-45.0); ABG PH 7.242 (7.350-7.450); ABG PO2 124.9 mmHg (75.0-100.0); COHb 0.7 % (0.5-1.5); O2Hb 97.3 % (94.0-97.0); SITE, ABG Left Radial; VENT MODE, BG ST 20/5 RR 24 100%
--- NOTE | 2022-03-16 20:30 | NUR ---
RT NOTE ABG TAKEN AND CRITICAL RESULTS REPORTED TO BEVERLY SERVICE COORDINATOR [facility]. BIPAP CHANGES MADE PER BEVERLY SERVICE COORDINATOR [facility] ORDERS. Addendum: 03/16/22 at 2103 by AICHA LEMUS RT Amended: Links added.
[2022-03-16] MEDS: CARVEDILOL 12.5 MG TABLET PO SCH (21:00)
--- NOTE | 2022-03-16 21:00 | NUR ---
ADMITTED 81/F FROM ER WITH A DX OF CO2 NECROSIS WITH A HX OF HTN, AFIB, DM, CHF, COPD, AKF/INJURY. ON BIPAP, SETTINGS PRESCRIBED. A/OX4, ETHIOPIAN SPEAKING. IV ACCESS ON LT HAND G#20. MATTHEWS CATH IN PLACE. V/S CHECKED. SKIN CHECK PERFORMED. PICTURES TAKEN. BELONGINGS CHECKED. SAFETY MEASURES IN PLACE. WILL CONTINUE PLAN OF CARE AND WILL CONTINUE TO ASSESS.
[2022-03-16] MEDS: ATORVASTATIN 40 MG TABLET PO SCH (22:00)
[2022-03-16 22:21] LABS: ABG BASE EXCESS 12.5 mmol/L; ABG OXYGEN SATURATION 94.5 % (92.0-98.5); ABG PCO2 43.8 mmHg (35.0-45.0); ABG PH 7.537 (7.350-7.450); ABG PO2 58.4 mmHg (75.0-100.0); AaDO2 321.2 mmHg; COHb 0.9 % (0.5-1.5); MetHb 0.1 % (0.0-1.5); O2Hb 93.6 % (94.0-97.0); SITE, ABG Left Radial; VENT MODE, BG ST 24/5 RR 30 60%
--- NOTE | 2022-03-16 22:30 | NUR ---
PT LETHARGIC. CHARGE NURSE AND ATTENDING DOCTOR INFORMED.
--- NOTE | 2022-03-16 22:40 | NUR ---
ATTENDING DOCTOR AT BEDSIDE
--- NOTE | 2022-03-16 22:45 | NUR ---
PO MEDS HELD ORDERED.
[2022-03-16] MEDS: FUROSEMIDE 40 MG/4 ML VIAL IV SCH (23:00)
[2022-03-17] VITALS (68 sets, daily range): BP systolic 81–237; BP diastolic 27–160
--- NOTE | 2022-03-17 00:10 | NUR ---
RT NOTE LATE ENTRY ABG TAKEN AND RESULTS GIVEN TO SHOAIB PEÑA CHANGES MADE PER JESSE LITTLE. Addendum: 03/17/22 at 0137 by AICHA LEMUS RT Amended: Links added.
[2022-03-17 00:28] LABS: ABG BASE EXCESS 12.5 mmol/L; ABG OXYGEN SATURATION 98.7 % (92.0-98.5); ABG PCO2 37.8 mmHg (35.0-45.0); ABG PH 7.587 (7.350-7.450); ABG PO2 146.1 mmHg (75.0-100.0); AaDO2 529.1 mmHg; COHb 0.6 % (0.5-1.5); MetHb 0.3 % (0.0-1.5); O2Hb 97.8 % (94.0-97.0); SITE, ABG Left Radial; VENT MODE, BG ST 24/5 RR30 100%
[2022-03-17] MEDS: ALBUTEROL FS 2.5 MG/3 ML VIAL.NEB NEB SCH ×4 (01:50→19:49)
[2022-03-17] MEDS: IPRATROPIUM NEB FS 0.5 MG/2.5 ML AMPUL.NEB NEB SCH ×4 (01:50→19:49)
[2022-03-17 05:13] LABS: ABG BASE EXCESS 13.1 mmol/L; ABG OXYGEN SATURATION 98.7 % (92.0-98.5); ABG PCO2 36.4 mmHg (35.0-45.0); ABG PH 7.606 (7.350-7.450); ABG PO2 133.9 mmHg (75.0-100.0); AaDO2 542.7 mmHg; COHb 0.7 % (0.5-1.5); SITE, ABG Left Radial; VENT MODE, BG ST 22/5 RR25 100%
--- NOTE | 2022-03-17 05:15 | NUR ---
RT NOTE ABG TAKEN AND RESULTS REPORTED TO . PT TAKEN OFF BIPAP AND PLACED ON NRB MASK @ 15LPM. RN AWARE Addendum: 03/17/22 at 0632 by AICHA LEMUS RT Amended: Links added.
[2022-03-17 05:22] LABS: BASOPHILS # (AUTO) 0.1 K/uL (0.0-0.2); BASOPHILS % (AUTO) 0.8 % (0.0-2.0); EOSINOPHILS % (AUTO) 1.2 % (0.0-6.0); HEMATOCRIT 34 % (33-45); HEMOGLOBIN 10.5 g/dL (11.5-14.8); LYMPHOCYTES # (AUTO) 1.3 K/uL (0.8-4.8); LYMPHOCYTES % (AUTO) 17.4 % (20.0-44.0); MEAN CORPUSCULAR HGB CONC 31 g/dl (31.0-36.0); MEAN CORPUSCULAR VOLUME 87 fL (82-100); MONOCYTES # (AUTO) 0.6 K/uL (0.1-1.30); MONOCYTES % (AUTO) 7.8 % (2.0-12.0); NEUTROPHILS # (AUTO) 5.5 K/uL (1.8-8.9); NEUTROPHILS % (AUTO) 72.8 % (43.0-81.0); PLATELET COUNT (AUTO) 236 K/uL (150-450); RED BLOOD CELL COUNT(AUTO) 3.85 MIL/uL (4.0-5.2); WHITE BLOOD COUNT (AUTO) 7.6 K/uL (4.3-11.0)
[2022-03-17 05:36] LABS: ALANINE AMINOTRANSFERASE 59 U/L (12-78); ALBUMIN 2.7 g/dL (3.4-5.0); ALKALINE PHOSPHATASE 93 U/L (46-116); ASPARTATE AMINOTRANSFERASE 32 U/L (15-37); BILIRUBIN,TOTAL 0.4 mg/dL (0.2-1.0); CALCIUM, SERUM 9.6 mg/dL (8.5-10.1); CARBON DIOXIDE 38 mmol/L (21-32); CHLORIDE 96 mmol/L (98-107); CREATININE 1.5 mg/dL (0.6-1.3); GLUCOSE 131 mg/dL (74-106); MAGNESIUM 2.1 mg/dL (1.8-2.4); PHOSPHORUS 2.9 mg/dL (2.5-4.9); POTASSIUM 3.9 mmol/L (3.5-5.1); SODIUM SERUM 137 mmol/L (136-145); TOTAL PROTEIN, SERUM 5.8 g/dL (6.4-8.2); UREA NITROGEN, BLOOD 52 mg/dL (7-18)
--- NOTE | 2022-03-17 07:34 | NUR ---
PT AWAKE. A/OX4, TURKISH SPEAKING. ON NRB MASK. IV ACCESS ON LT HAND G#20. MATTHEWS CATH IN PLACE. NEEDS ATTENDED. SAFETY MEASURES MAINTAINED. WILL ENDORSE TO NEXT NURSE ON DUTY FOR JOSE.
--- NOTE | 2022-03-17 07:45 | NUR ---
PT IN BED OFF LOADED TO THE LEFT. BREATHING IS EVEN AND UNLABORED ON NON REBREATHER 20RR/ MIN. A/O X3 VERBAL AND AWAKE. BEDSIDE MONITOR SHOWS A FIB RATE OF 68. O2 SAT 98% BP 94/50 A FEBRILE 98.8F. LEFT HAND 20G IN PLACE SALINE FLUSH WITH EASE. PICC LINE INSERTION SCHEDULED FOR THIS MORNING. MATTHEWS CATHETER IS PATENT DRAINING YELLOW URINE. HOB AT LOW FOWLERS
[2022-03-17] MEDS: FUROSEMIDE 40 MG/4 ML VIAL IV SCH ×3 (08:28→17:02)
[2022-03-17] MEDS: FERROUS SULFATE (325 MG) 325 MG/TAB TABLET PO SCH (08:28)
[2022-03-17] MEDS: FLECAINIDE ACETATE (100 MG) 100 MG TABLET PO SCH ×2 (08:29→17:02)
[2022-03-17] MEDS: CARVEDILOL 12.5 MG TABLET PO SCH ×2 (08:55→21:16)
[2022-03-17] MEDS: SPIRONOLACTONE 25 MG TABLET PO SCH (08:55)
[2022-03-17] MEDS: PANTOPRAZOLE 40 MG/PACK PACK PO SCH ×2 (08:56→17:02)
[2022-03-17] MEDS: MAGNESIUM OXIDE 400 MG TABLET PO SCH (08:56)
[2022-03-17] MEDS: CHOLECALCIFEROL 1,000 UNIT TABLET (VIT D3) PO SCH (08:56)
[2022-03-17] MEDS: RIVAROXABAN 10 MG TABLET PO SCH (08:57)
[2022-03-17] MEDS ORDERED: FUROSEMIDE 40 MG/4 ML VIAL IV SCH (09:00)
[2022-03-17] MEDS ORDERED: Medication Not On Formulary EA (Bumetanide 2 MG) PO SCH (09:00)
[2022-03-17] MEDS: EMPAGLIFLOZIN 25 MG TABLET PO SCH (09:09)
[2022-03-17] MEDS: NOREPINEPHRINE 8 MG in IV NS 0.9% 242 ML IV PRN (10:56)
--- NOTE | 2022-03-17 11:15 | NUR ---
head ct, thoracentesis of left lung effusions, midline insertion, and renal Ultrasound all done pt started on levo drip at 0.1 mcg/kg/min
[2022-03-17] MEDS: MIDODRINE HCL (5MG) 5 MG TABLET PO SCH ×3 (11:28→17:00)
[2022-03-17] MEDS: GLUCERNA SHAKE 237 ML CAN PO SCH (14:00)
[2022-03-17] MEDS ORDERED: DEXTROSE 50%-WATER 50 ML DISP.SYRIN IV PRN (16:00)
[2022-03-17] MEDS: BLOOD SUGAR DIAGNOSTIC 1 EACH STRIP IN SCH ×2 (17:03→21:21)
[2022-03-17] MEDS: ropiniROLE 0.5 MG TABLET PO SCH (17:03)
[2022-03-17] MEDS: BLOOD SUGAR DIAGNOSTIC 1 EACH STRIP VI SCH ×2 (17:04→22:29)
[2022-03-17] MEDS: *INSULIN REGULAR(HUMULIN R)HUM 100 UNIT/ML VIAL SQ PRN ×2 (17:40→21:23)
--- NOTE | 2022-03-17 19:30 | NUR ---
RN NOTES RECEIVED REPORT FROM MORNING RN. PATIENT IN BED ASLEEP FAMILY AT BEDSIDE. ON OXYGEN INHALATION AT 6LPM SATING 93%. WITH IV ACCESS AT L UA MIDLINE #18 PATENT FLUSHES WELL NO INFILTRATION NOTED RUNNING LEVOPHED AT 0.05MCG/KG/MIN. VITAL SIGNS TAKEN AND RECORDED AFEBRILE. ALL SAFETY MEASURES IN PLACE. HOB ELEVATED. WILL CLOSELY MONITOR THE PATIENT
--- NOTE | 2022-03-17 21:00 | NUR ---
PLACED PT ON NOCTURNAL BIPAP 20/12, RR 12, FIO2 50% PER MD'S ORDER. SPO2 95%, NO RESPIRATORY DISTRESS NOTED. DINORAH STOUT NOTIFIED. WILL CONTINUE TO MONITOR T/O SHIFT.
[2022-03-17] MEDS: MEMANTINE HCL 5 MG TABLET PO SCH (21:16)
[2022-03-17] MEDS: ATORVASTATIN 40 MG TABLET PO SCH (21:16)
[2022-03-17] MEDS: LATANOPROST EYE DROP 0.005% 2.5 ML BOTTLE EACHEYE SCH (21:17)
[2022-03-18] VITALS (73 sets, daily range): BP systolic 87–139; BP diastolic 32–69
[2022-03-18] MEDS: NOREPINEPHRINE 8 MG in IV NS 0.9% 242 ML IV PRN (00:05)
[2022-03-18] MEDS: ALBUTEROL FS 2.5 MG/3 ML VIAL.NEB NEB SCH ×4 (01:35→19:44)
[2022-03-18] MEDS: IPRATROPIUM NEB FS 0.5 MG/2.5 ML AMPUL.NEB NEB SCH ×4 (01:36→19:44)
[2022-03-18 05:35] LABS: MetHb 0.1 % (0.0-1.5)
--- NOTE | 2022-03-18 05:45 | NUR ---
PT TAKEN OFF BIPAP AND PLACED ON 6L NC. DINORAH STOUT NOTIFIED.
--- NOTE | 2022-03-18 06:55 | NUR ---
RN NOTES PATIENT IN BED A/O X3 EAST TIMOR[place] SPEAKING. ON NASAL CANULA AT 6LPM SATING 90%. PATIENT ON BIPAP FROM [id number]. IV ACCESS AT REESE MIDLINE PATENT RUNNING LEVOPHED AT 0.07MCG/KG/MIN. MATTHEWS PATENT DRAINING YELLOWISH URINE OUTPUT. ALL SAFETY MEASURES IN PLACE HOB ELEVATED. WILL ENDORSED TO MORNING SHIFT FOR JOSE
--- NOTE | 2022-03-18 07:15 | NUR ---
RN note Received patient in bed. E4V4M6, patient does not have active complaint. equine pharmacology technician showed SB HR 59/min. BP 138/38mmHg with levophed running at 0.07mcg/kg/min, running through left UA midline. On 6L oxygen via NC, Spo2 94-95%, RR 18/min, no respiratory distress noted. Call maya is placed within reach. Bed is locked. Will continue monitoring and care.
--- NOTE | 2022-03-18 07:30 | NUR ---
RN note reduced oxygen to 4L via NC, SpO2 93-94%, RR 18/min. RT Bhaskar is informed.
[2022-03-18] MEDS: BLOOD SUGAR DIAGNOSTIC 1 EACH STRIP IN SCH ×4 (07:56→22:13)
[2022-03-18] MEDS: INSULIN REGULAR, HUMAN 100 UNIT/ML 3 ML VIAL SQ PRN ×4 (07:56→21:14)
--- NOTE | 2022-03-18 08:06 | NUR ---
WOUND CARE CONSULT: LIMITED ASSESSMENT DUE TO PT REFUSAL TO BE TURNED FOR FULL ASSESSMENT. LEFT LOWER LEG ULCER NOTED TO BE PRESENT ON ADMISSION WELL RT LOWER LEG DRY ABRASIONS/SCABS AND DISCOLORATION TO NASAL BRIDGE. ADMISSION PHOTO INDICATES SACRAL DEEP TISSUE INJURY IN EVOLUTION, PRESENT ON ADMISSION. RECOMMENDATIONS MADE FOR WOUND CARE AND SKIN PROTECTION. DISCUSSED WITH NURSING STAFF. DR LOGAN CALLED FOR DPM CONSULT. FIRST STEP LOW AIRLOSS MATTRESS IS ON ORDER. MD IN AGREEMENT WITH PLAN OF CARE.
[2022-03-18] MEDS: CARVEDILOL 12.5 MG TABLET PO SCH ×2 (08:36→21:00)
[2022-03-18] MEDS: GLUCERNA SHAKE 237 ML CAN PO SCH (08:49)
[2022-03-18 08:51] LABS: ABG BASE EXCESS 13.3 mmol/L; ABG OXYGEN SATURATION 91.5 % (92.0-98.5); ABG PCO2 66.5 mmHg (35.0-45.0); ABG PH 7.403 (7.350-7.450); ABG PO2 60.8 mmHg (75.0-100.0); AaDO2 184.4 mmHg; COHb 1.2 % (0.5-1.5); O2Hb 90.3 % (94.0-97.0); SITE, ABG Left Radial; VENT MODE, BG Nasal Cannula
[2022-03-18] MEDS: CYANOCOBALAMIN 500 MCG TABLET PO SCH (09:07)
[2022-03-18] MEDS: PANTOPRAZOLE 40 MG/PACK PACK PO SCH ×2 (09:07→16:33)
[2022-03-18] MEDS: ropiniROLE 0.5 MG TABLET PO SCH ×3 (09:08→16:33)
[2022-03-18] MEDS: CHOLECALCIFEROL 1,000 UNIT TABLET (VIT D3) PO SCH (09:08)
[2022-03-18] MEDS: ASCORBIC ACID 500 MG TABLET PO SCH (09:08)
[2022-03-18] MEDS: FERROUS SULFATE (325 MG) 325 MG/TAB TABLET PO SCH (09:09)
[2022-03-18] MEDS: FOLIC ACID 1 MG TABLET PO SCH (09:09)
[2022-03-18] MEDS: MIDODRINE HCL (5MG) 5 MG TABLET PO SCH ×3 (09:10→16:34)
[2022-03-18] MEDS: FLECAINIDE ACETATE (100 MG) 100 MG TABLET PO SCH ×2 (09:11→16:34)
[2022-03-18] MEDS: SPIRONOLACTONE 25 MG TABLET PO SCH (09:11)
[2022-03-18] MEDS: EMPAGLIFLOZIN 25 MG TABLET PO SCH (09:11)
[2022-03-18] MEDS: MAGNESIUM OXIDE 400 MG TABLET PO SCH (09:11)
[2022-03-18] MEDS: RIVAROXABAN 10 MG TABLET PO SCH (09:13)
[2022-03-18] MEDS: FUROSEMIDE 40 MG/4 ML VIAL IV SCH ×2 (09:16→12:05)
[2022-03-18] MEDS: IV NS 0.9% 250 ML IV PRN (09:41)
[2022-03-18] MEDS: BLOOD SUGAR DIAGNOSTIC 1 EACH STRIP VI SCH ×2 (11:21→11:22)
--- NOTE | 2022-03-18 15:40 | NUR ---
Urine for urinalysis was collected.
[2022-03-18] MEDS: PANTOPRAZOLE 40 MG TABLET.DR PO SCH ×2 (17:02→21:09)
[2022-03-18 18:58] LABS: BILIRUBIN,URINE NEGATIVE (NEGATIVE); COLOR,URINE YELLOW (YELLOW); LEUKOCYTE ESTERASE ,URINE 2+ (NEGATIVE); NITRITE, URINE NEGATIVE (NEGATIVE); PH,URINE 5.5 (5.0-8.0); PROTEIN,URINE NEGATIVE (NEGATIVE); UGLUCOSE 2+ mg/dL (NEGATIVE); UROBILINOGEN,URINE 0.2 EU/dL (0.2)
--- NOTE | 2022-03-18 19:15 | NUR ---
RN NOTES RECEIVED REPORT FROM MORNING SHIFT. PATIENT IN BED A/O X3 FAMILY AT BEDSIDE NO SOB NO DISTRESS NOTED AT THIS TIME. ON NASAL CANULA AT 4LPM TOLERATING WELL SATING 92%. ON NOCTURNAL BIPAP WITH PRESCRIBED SETTINGS WITH IV ACCESS AT REESE MIDLINE PATENT FLUSHES WELL RUNNING NS @ TKO. ALL SAFETY MEASURES IN PLACE AT ALL TIMES. HOB ELEVATED. CALL LIGHT WITHIN REACH WILL CLOSELY MONITOR THE PATIENT
[2022-03-18 19:24] LABS: BACTERIA,URINE 3+ /HPF (None Seen); RBC,URINE 81-100 /HPF (0-2); WBC,URINE 51-80 /HPF (0-3)
--- NOTE | 2022-03-18 21:00 | NUR ---
RCVD PT ON 4L NC AND PLACED ON NOC BIPAP. DINORAH STOUT NOTIFIED , NO RESPIRATORY DISTRESS NOTED AT THIS TIME. WILL CONTINUE TO MONITOR T/O SHIFT.
[2022-03-18] MEDS: ATORVASTATIN 40 MG TABLET PO SCH (21:09)
[2022-03-18] MEDS: MEMANTINE HCL 5 MG TABLET PO SCH (21:09)
[2022-03-18] MEDS: LATANOPROST EYE DROP 0.005% 2.5 ML BOTTLE EACHEYE SCH (21:09)
--- NOTE | 2022-03-18 21:20 | NUR ---
RN NOTES CARVEDILOL HELD DUE TO HR 55 BP 103/41
[2022-03-19] VITALS (37 sets, daily range): BP systolic 93–138; BP diastolic 31–82
[2022-03-19] MEDS: ALBUTEROL FS 2.5 MG/3 ML VIAL.NEB NEB SCH ×4 (01:12→19:42)
[2022-03-19] MEDS: IPRATROPIUM NEB FS 0.5 MG/2.5 ML AMPUL.NEB NEB SCH ×4 (01:12→19:42)
[2022-03-19 04:56] LABS: BASOPHILS % (AUTO) 0.6 % (0.0-2.0); EOSINOPHILS % (AUTO) 3.4 % (0.0-6.0); HEMATOCRIT 31 % (33-45); HEMOGLOBIN 9.9 g/dL (11.5-14.8); LYMPHOCYTES # (AUTO) 1.5 K/uL (0.8-4.8); LYMPHOCYTES % (AUTO) 22.8 % (20.0-44.0); MEAN CORPUSCULAR HGB CONC 32 g/dl (31.0-36.0); MEAN CORPUSCULAR VOLUME 88 fL (82-100); MONOCYTES # (AUTO) 0.6 K/uL (0.1-1.30); MONOCYTES % (AUTO) 9.8 % (2.0-12.0); NEUTROPHILS # (AUTO) 4.1 K/uL (1.8-8.9); NEUTROPHILS % (AUTO) 63.4 % (43.0-81.0); PLATELET COUNT (AUTO) 227 K/uL (150-450); RED BLOOD CELL COUNT(AUTO) 3.57 MIL/uL (4.0-5.2); WHITE BLOOD COUNT (AUTO) 6.5 K/uL (4.3-11.0)
[2022-03-19 05:13] LABS: CALCIUM, SERUM 8.8 mg/dL (8.5-10.1); CARBON DIOXIDE 37 mmol/L (21-32); CHLORIDE 96 mmol/L (98-107); CREATININE 1.7 mg/dL (0.6-1.3); GLUCOSE 131 mg/dL (74-106); MAGNESIUM 2.3 mg/dL (1.8-2.4); PHOSPHORUS 4.9 mg/dL (2.5-4.9); POTASSIUM 3.7 mmol/L (3.5-5.1); SODIUM SERUM 138 mmol/L (136-145); UREA NITROGEN, BLOOD 61 mg/dL (7-18)
--- NOTE | 2022-03-19 05:26 | NUR ---
TITRATE FIO2 TO 40%, DINORAH STOUT NOTIFIED. SPO2 98%
[2022-03-19 05:30] LABS: ABG BASE EXCESS 12.8 mmol/L; ABG OXYGEN SATURATION 98.2 % (92.0-98.5); ABG PCO2 69.2 mmHg (35.0-45.0); ABG PH 7.384 (7.350-7.450); ABG PO2 132.2 mmHg (75.0-100.0); AaDO2 146.5 mmHg; COHb 0.9 % (0.5-1.5); O2Hb 97.3 % (94.0-97.0); SITE, ABG Right Radial
--- NOTE | 2022-03-19 05:32 | NUR ---
PT TAKEN OFF BIPAP, PLACED ON 4L NC. DINORAH STOUT NOTIFIED. NO RESPIRATORY DISTRESS OR SOB NOTED. WILL ENDORSE TO DAY SHIFT RT.
--- NOTE | 2022-03-19 05:45 | NUR ---
RN NOTES ABG RESULT RELAYED TO BEVERLY CONSUMER STUDIES PROFESSOR WITH ORDER TO LET RT TITRATE THE SETTINGS. RT MADE AWARE
--- NOTE | 2022-03-19 06:46 | NUR ---
RN NOTES PATIENT REMAINS STABLE NO SIGNIFICANT CHANGES, STILL ON NOCTURNAL BIPAP UNTIL [address] TO NASAL CANULA AT 4LP PATIENT TOLERATING WELL NO SOB NOTED. IV ACCESS AT REESE MIDLINE PATENT FLUSHES WELL. ALL SAFETY MEASURES IN PLACE AT ALL TIMES. HOB ELEVATED. CALL LIGHT WITHIN REACH. WILL ENDORSED TO MORNING SHIFT FOR JOSE
--- NOTE | 2022-03-19 07:09 | NUR ---
RN note Received patient in bed. E4V4M6, patient does not have active complaint. food mixer repairer showed SB HR 59/min. On 4L oxygen via NC, Spo2 92-94%, RR 18/min, no respiratory distress noted. Left UA midline is dry and intact, with TKO running at 10mL/hr. Call maya is placed within reach. Bed is locked. Will continue monitoring and care.
--- NOTE | 2022-03-19 07:30 | NUR ---
RN note HR is consistently low, around 55-58, SR. Would hold flecainide.
[2022-03-19] MEDS: GLUCERNA SHAKE 237 ML CAN PO SCH (07:50)
[2022-03-19] MEDS: BLOOD SUGAR DIAGNOSTIC 1 EACH STRIP IN SCH ×4 (07:50→21:07)
[2022-03-19] MEDS: ropiniROLE 0.5 MG TABLET PO SCH ×3 (08:15→16:47)
[2022-03-19] MEDS: FOLIC ACID 1 MG TABLET PO SCH (08:16)
[2022-03-19] MEDS: SPIRONOLACTONE 25 MG TABLET PO SCH (08:16)
[2022-03-19] MEDS: ASCORBIC ACID 500 MG TABLET PO SCH (08:16)
[2022-03-19] MEDS: CHOLECALCIFEROL 1,000 UNIT TABLET (VIT D3) PO SCH (08:17)
[2022-03-19] MEDS: CYANOCOBALAMIN 500 MCG TABLET PO SCH (08:17)
[2022-03-19] MEDS: FERROUS SULFATE (325 MG) 325 MG/TAB TABLET PO SCH (08:17)
[2022-03-19] MEDS: PANTOPRAZOLE 40 MG TABLET.DR PO SCH ×2 (08:18→21:06)
[2022-03-19] MEDS: MAGNESIUM OXIDE 400 MG TABLET PO SCH (08:18)
[2022-03-19] MEDS: MIDODRINE HCL (5MG) 5 MG TABLET PO SCH ×3 (08:19→16:47)
[2022-03-19] MEDS: RIVAROXABAN 10 MG TABLET PO SCH (08:20)
[2022-03-19] MEDS: CARVEDILOL 12.5 MG TABLET PO SCH ×2 (08:21→21:00)
[2022-03-19] MEDS: FLECAINIDE ACETATE (100 MG) 100 MG TABLET PO SCH (08:21)
[2022-03-19] MEDS: AMIODARONE HCL 200 MG TABLET PO SCH (09:00)
[2022-03-19] MEDS: FUROSEMIDE 40 MG/4 ML VIAL IV SCH ×2 (09:59→12:25)
[2022-03-19] MEDS: POTASSIUM CHLORIDE 20 MEQ TAB.PRT.SR PO SCH ×2 (09:59→10:00)
--- NOTE | 2022-03-19 10:00 | NUR ---
RN note Hold oral amiodarone as HR is low, SB 55/min.
[2022-03-19] MEDS: IV NS 0.9% 250 ML IV PRN (11:24)
[2022-03-19] MEDS ORDERED: BISACODYL SUPP (10 MG) 10 MG/SUPP.RECT SUPP.RECT RC PRN (12:00)
[2022-03-19] MEDS: INSULIN REGULAR, HUMAN 100 UNIT/ML 3 ML VIAL SQ PRN ×2 (12:27→17:02)
--- NOTE | 2022-03-19 21:05 | NUR ---
RT Pt refusing to be placed on BIPAP at this time @2100. Pt is requesting to wait until 2300 for the BIPAP. RN notified. Will cont to monitor.
[2022-03-19] MEDS: MEMANTINE HCL 5 MG TABLET PO SCH (21:06)
[2022-03-19] MEDS: ATORVASTATIN 40 MG TABLET PO SCH (21:06)
[2022-03-19] MEDS: LATANOPROST EYE DROP 0.005% 2.5 ML BOTTLE EACHEYE SCH ×3 (21:07→21:31)
[2022-03-19] MEDS: *INSULIN REGULAR(HUMULIN R)HUM 100 UNIT/ML VIAL SQ PRN (21:10)
[2022-03-19] MEDS ORDERED: NITROGLYCERIN 0.4 MG/TAB BOTTLE SL PRN (22:00)
[2022-03-19] MEDS ORDERED: MORPHINE SULFATE INJ 2 MG/ML DISP.SYRIN IV PRN (22:00)
[2022-03-19 22:11] LABS: CALCIUM, SERUM 9.1 mg/dL (8.5-10.1); CHLORIDE 95 mmol/L (98-107); CREATININE 1.7 mg/dL (0.6-1.3); GLUCOSE 182 mg/dL (74-106); MAGNESIUM 2.2 mg/dL (1.8-2.4); PHOSPHORUS 4.2 mg/dL (2.5-4.9); POTASSIUM 3.9 mmol/L (3.5-5.1); SODIUM SERUM 135 mmol/L (136-145); UREA NITROGEN, BLOOD 60 mg/dL (7-18)
[2022-03-19 22:13] LABS: CARBON DIOXIDE 41 mmol/L (21-32)
--- NOTE | 2022-03-19 22:15 | NUR ---
RT Pt placed on NOC BIPAP on ordered settings 20 IPAP, 12 EPAP, rate 12, FIO2 40%.
--- NOTE | 2022-03-19 22:33 | NUR ---
RN NOTE 2129 PATIENT C/O CP 7/10 RADIATING TO LEFT SHOULDER. BP 121/44 HR 54. JESSE LITTLE INFORMED OF NEW CP. DAUGHTER STATES TAKE NITRO AT HOME. RECEIVED ORDER FOR NITRO AND MORPHINE. NITROX1 ADMINISTERED 2199. PATIENT STATED CP HAS DECREASED. DOES NOT WANT ANOTHER NITRO. BP 105/46 HR 53. 2212 RECEIVED CRITICAL LAB FOR CO2 41. JESSE LITTLE INFORMED. PATIENT IS BEING PLACED ON HER NOC BIPAP NOW. NNO RECEIVED.
[2022-03-20] VITALS (19 sets, daily range): BP systolic 103–134; BP diastolic 33–70
[2022-03-20] MEDS: ALBUTEROL FS 2.5 MG/3 ML VIAL.NEB NEB SCH ×4 (01:39→19:48)
[2022-03-20] MEDS: IPRATROPIUM NEB FS 0.5 MG/2.5 ML AMPUL.NEB NEB SCH ×4 (01:39→19:48)
--- NOTE | 2022-03-20 02:00 | NUR ---
RT Pt removed BIPAP mask and refusing to be placed back on BIPAP. Pt placed on nasal cannula on 2L. RN aware. Addendum: 03/20/22 at 0204 by HERI DIAZ RT Amended: Links added.
--- NOTE | 2022-03-20 02:20 | NUR ---
RT PT AGREES TO BE PLACED BACK ON BIPAP. PT ON ORDERED SETTINGS. Addendum: 03/20/22 at 0223 by HERI DIAZ RT Amended: Links added.
--- NOTE | 2022-03-20 04:20 | NUR ---
RT Pt asked to be taken off BIPAP. Pt placed on nasal cannula 2L O2.
[2022-03-20 05:04] LABS: BASOPHILS % (AUTO) 0.7 % (0.0-2.0); EOSINOPHILS % (AUTO) 3.7 % (0.0-6.0); HEMATOCRIT 33 % (33-45); HEMOGLOBIN 10.3 g/dL (11.5-14.8); LYMPHOCYTES # (AUTO) 1.5 K/uL (0.8-4.8); LYMPHOCYTES % (AUTO) 22.4 % (20.0-44.0); MEAN CORPUSCULAR HGB CONC 31 g/dl (31.0-36.0); MEAN CORPUSCULAR VOLUME 88 fL (82-100); MONOCYTES # (AUTO) 0.7 K/uL (0.1-1.30); MONOCYTES % (AUTO) 10.3 % (2.0-12.0); NEUTROPHILS # (AUTO) 4.2 K/uL (1.8-8.9); NEUTROPHILS % (AUTO) 62.9 % (43.0-81.0); PLATELET COUNT (AUTO) 243 K/uL (150-450); RED BLOOD CELL COUNT(AUTO) 3.74 MIL/uL (4.0-5.2); WHITE BLOOD COUNT (AUTO) 6.8 K/uL (4.3-11.0)
[2022-03-20 05:20] LABS: ALANINE AMINOTRANSFERASE 46 U/L (12-78); ALBUMIN 2.6 g/dL (3.4-5.0); ALKALINE PHOSPHATASE 77 U/L (46-116); ASPARTATE AMINOTRANSFERASE 21 U/L (15-37); BILIRUBIN,TOTAL 0.6 mg/dL (0.2-1.0); CALCIUM, SERUM 9.3 mg/dL (8.5-10.1); CHLORIDE 97 mmol/L (98-107); CREATININE 1.6 mg/dL (0.6-1.3); GLUCOSE 122 mg/dL (74-106); MAGNESIUM 2.3 mg/dL (1.8-2.4); PHOSPHORUS 3.8 mg/dL (2.5-4.9); POTASSIUM 3.7 mmol/L (3.5-5.1); SODIUM SERUM 138 mmol/L (136-145); TOTAL PROTEIN, SERUM 5.8 g/dL (6.4-8.2); UREA NITROGEN, BLOOD 58 mg/dL (7-18)
[2022-03-20 05:27] LABS: CARBON DIOXIDE 42 mmol/L (21-32)
--- NOTE | 2022-03-20 05:30 | NUR ---
RT Pt refusing routine ABG order, marine meteorologist at bedside translating in East Timorese. No signs of distress noted at this time.
--- NOTE | 2022-03-20 05:55 | NUR ---
RN NOTE PATIENT REFUSED AM ABG BLOOD DRAW, EDUCATED BY HARNESSMAKER. CONTINUES TO REFUSE.
--- NOTE | 2022-03-20 06:19 | NUR ---
RN CLOSING NOTE A/OX3. RECEIVED PATIENT ON 2L VIA NC. PLACED ON BIPAP FROM 2230 - 0400. CONTINUES TO BE ON 2L VIA NC POST NOC BIPAP. PATIENT REFUSED ABG THIS AM. SINUS AISLINN ON THE MONITOR. HR LOW 45. NO BM. WOUND CARE ORDERED. PATIENT REFUSED 0600 TURNING. MATTHEWS CATHETER MAINTAINED. PATIENT HAD AN EPISODE OF CHEST PAIN, NITRO X1 GIVEN. CRITICAL LAB OF CO2 41 REPORTED TO JESSE LITTLE. PRIOR TO BIPAP PLACEMENT LAST NIGHT.
--- NOTE | 2022-03-20 07:24 | NUR ---
RN note Received patient in bed. E4V4M6, patient does not have active complaint. capacitor repairer showed SB HR 55/min. On 2L oxygen via NC, Spo2 90-9%, RR 17/min, no respiratory distress noted. Left UA midline is dry and intact, with TKO running at 10mL/hr. Call maya is placed within reach. Bed is locked. Will continue monitoring and care.
[2022-03-20] MEDS: GLUCERNA SHAKE 237 ML CAN PO SCH (08:00)
[2022-03-20] MEDS: BLOOD SUGAR DIAGNOSTIC 1 EACH STRIP IN SCH ×4 (08:20→22:00)
[2022-03-20] MEDS: ropiniROLE 0.5 MG TABLET PO SCH ×3 (08:43→18:11)
[2022-03-20] MEDS: FERROUS SULFATE (325 MG) 325 MG/TAB TABLET PO SCH (08:44)
[2022-03-20] MEDS: CHOLECALCIFEROL 1,000 UNIT TABLET (VIT D3) PO SCH (08:44)
[2022-03-20] MEDS: SPIRONOLACTONE 25 MG TABLET PO SCH (08:45)
[2022-03-20] MEDS: ASCORBIC ACID 500 MG TABLET PO SCH (08:45)
[2022-03-20] MEDS: CYANOCOBALAMIN 500 MCG TABLET PO SCH (08:45)
[2022-03-20] MEDS: PANTOPRAZOLE 40 MG TABLET.DR PO SCH ×2 (08:45→21:46)
[2022-03-20] MEDS: CARVEDILOL 12.5 MG TABLET PO SCH ×2 (08:46→21:00)
[2022-03-20] MEDS: FOLIC ACID 1 MG TABLET PO SCH (08:46)
[2022-03-20] MEDS: AMIODARONE HCL 200 MG TABLET PO SCH (08:46)
[2022-03-20] MEDS: MAGNESIUM OXIDE 400 MG TABLET PO SCH (08:46)
[2022-03-20] MEDS: MIDODRINE HCL (5MG) 5 MG TABLET PO SCH ×3 (08:46→18:11)
[2022-03-20] MEDS: RIVAROXABAN 10 MG TABLET PO SCH (08:47)
[2022-03-20] MEDS: IV NS 0.9% 250 ML IV PRN (10:49)
[2022-03-20] MEDS: INSULIN REGULAR, HUMAN 100 UNIT/ML 3 ML VIAL SQ PRN ×2 (12:15→18:13)
--- NOTE | 2022-03-20 12:50 | NUR ---
RN note Patient's SpO2 with 2L oxygen is around 89-93% all along without respiratory distress. Deecreased oxygen to 1L via NC. Keep monitoring and observation.
--- NOTE | 2022-03-20 17:30 | NUR ---
RN note Transferred patient from ICU to telemetry unit with carer's accompany. secured entrance monitor showed SB all along with HR 55/min. Patient does not have active complaint all along. New environment orientation provided to patient. Misbah maya is placed within reach. Bed is locked and placed in the lowest position. All safety measures have been implemented. Will continue monitor and care.
--- NOTE | 2022-03-20 19:30 | NUR ---
STILL OPERATOR BRANDY OPENING NOTE RECEIVED PT AWAKE IN BED. FAMILY AT BEDSIDE. A/O X3 AND SAMOAN SPEAKING ONLY. PT ON O2 @ 1 LPM, TOLERATING WELL. NO SOB OR S/S OF RESPIRATORY DISTRESS. BREATHING EVEN AND UNLABORED. ON EXTERNAL CHILD THERAPIST READING SB 54 BPM. IV ACCESS REESE ML AND L HAND 20 G, INTACT AND PATENT. SAFETY PRECAUTIONS IN PLACE. BED IN LOWEST LOCKED POSITION, HOB ELEVATED, SIDE RAILS UPX 3, AND CALL LIGHT AND TABLE WITHIN REACH. ALL NEEDS MET AT THIS TIME.
--- NOTE | 2022-03-20 21:09 | NUR ---
RN NOTE HELD COREG 25 MG FOR LOW HR 47 BPM. CHARGE NURSE MAHESH FERNANDEZ.
[2022-03-20] MEDS: ATORVASTATIN 40 MG TABLET PO SCH (21:47)
[2022-03-20] MEDS: LATANOPROST EYE DROP 0.005% 2.5 ML BOTTLE EACHEYE SCH (21:47)
[2022-03-20] MEDS: MEMANTINE HCL 5 MG TABLET PO SCH (21:47)
[2022-03-20] MEDS: *INSULIN REGULAR(HUMULIN R)HUM 100 UNIT/ML VIAL SQ PRN (22:03)
--- NOTE | 2022-03-20 23:54 | NUR ---
Found pt off bipap on 3L NC.
[2022-03-21] VITALS: BP 134/66
--- NOTE | 2022-03-21 00:06 | NUR ---
Pt back on bipap.
[2022-03-21] MEDS: IPRATROPIUM NEB FS 0.5 MG/2.5 ML AMPUL.NEB NEB SCH ×4 (01:43→20:15)
[2022-03-21] MEDS: ALBUTEROL FS 2.5 MG/3 ML VIAL.NEB NEB SCH ×4 (01:43→20:15)
[2022-03-21 04:00] VITALS: BP 142/53
--- NOTE | 2022-03-21 04:31 | NUR ---
Pt asked to be taken off bipap. Placed on 2L NC. No SOB or resp distress noted at this time. SPO2 steady at 93%.
[2022-03-21 05:23] LABS: ABG BASE EXCESS 12.7 mmol/L; ABG OXYGEN SATURATION 93.3 % (92.0-98.5); ABG PCO2 64.2 mmHg (35.0-45.0); ABG PH 7.409 (7.350-7.450); ABG PO2 69.9 mmHg (75.0-100.0); COHb 1.3 % (0.5-1.5); O2Hb 92.1 % (94.0-97.0); SITE, ABG Left Radial; VENT MODE, BG NASAL CANNULA 28%
--- NOTE | 2022-03-21 05:58 | NUR ---
RN NOTE PT REFUSED LINEN CHANGE, SKIN ASSESSMENT, AND PICTURES DURING ENTIRE SHIFT. SHE STATED SHE WANTED TO "WAIT FOR MY SISTER TO BE HERE TO HELP".
[2022-03-21] MEDS: BLOOD SUGAR DIAGNOSTIC 1 EACH STRIP IN SCH ×4 (06:39→21:33)
--- NOTE | 2022-03-21 07:04 | NUR ---
MOLECULAR SPECTROSCOPIST CLOSING NOTE RECEIVED PT AWAKE IN BED. A/O X3 AND [place] SPEAKING ONLY. PT ON O2 @ 2 LPM, TOLERATING WELL. NO SOB OR S/S OF RESPIRATORY DISTRESS. BREATHING EVEN AND UNLABORED. ON EXTERNAL CIVIL ENGINEERING DRAFTER READING SB 52 BPM. IV ACCESS REESE ML AND L HAND 20 G, INTACT AND PATENT. ALL DUE MEDS GIVEN ORDERED. SKIN ASSESSMENT AND WOUND DOCUMENTATION REFUSED. SAFETY PRECAUTIONS IN PLACE AT ALL TIMES. BED IN LOWEST LOCKED POSITION, HOB ELEVATED, SIDE RAILS UPX 3, AND CALL LIGHT AND TABLE WITHIN REACH. ALL NEEDS MET AT THIS TIME AND WILL ENDORSE TO ONCOMING NURSE FOR JOSE.
--- NOTE | 2022-03-21 07:30 | NUR ---
DIRECTOR OF PHYSICIAN PRACTICES OPENING NOTES RECEIVED PATIENT ON BED AWAKE AND A/O X3, CONGOLESE SPEAKING. ON O2 AT 2LPM VIA NASAL CANNULA TOLERATING WELL. WITH NO COMPLAINTS OF PAIN AT THIS TIME. WITH IV ACCESS AT THE LEFT UPPER ARM MIDLINE AT THE LEFT HAND G20, SALINE LOCKED, PATENT AND INTACT. ON TELE MONITOR CURRENTLY READING SINUS BRADYCARDIA AT 52BPM. WITH MATTHEWS CATHETER IN PLACED DRAINING CLEAR YELLOW URINE. SAFETY MEASURES IN PLACED. CALL LIGHT WITHIN REACH. BED ON LOWEST LOCKED POSITION, SIDE RAILS UP X2. WILL CONTINUE TO MONITOR.
--- NOTE | 2022-03-21 07:30 | NUR ---
LUMP MAKER OPENING NOTES RECEIVED PATIENT ON BED AWAKE AND A/O X3, ENGLISH SPEAKING. ON O2 AT 2LPM VIA NASAL CANNULA TOLERATING WELL. WITH NO COMPLAINTS OF PAIN AT THIS TIME. WITH IV ACCESS AT THE LEFT UPPER ARM MIDLINE AT THE LEFT HAND G20, SALINE LOCKED, PATENT AND INTACT. ON TELE MONITOR CURRENTLY READING SINUS BRADYCARDIA AT 52BPM. WITH MATTHEWS CATHETER IN PLACED DRAINING CLEAR YELLOW URINE. SAFETY MEASURES IN PLACED. CALL LIGHT WITHIN REACH. BED ON LOWEST LOCKED POSITION, SIDE RAILS UP X2. WILL CONTINUE TO MONITOR. Addendum: 03/21/22 at 1548 by IKE PAUL RN ERROR. DOCUMENTED ON WRONG PATIENT.
[2022-03-21 08:05] LABS: CALCIUM, SERUM 9.2 mg/dL (8.5-10.1); CREATININE 1.3 mg/dL (0.6-1.3); MAGNESIUM 2.4 mg/dL (1.8-2.4); PHOSPHORUS 3.6 mg/dL (2.5-4.9); POTASSIUM 3.8 mmol/L (3.5-5.1)
[2022-03-21] MEDS: LINZESS 145 MCG PO SCH (08:15)
[2022-03-21 08:28] LABS: BASOPHILS # (AUTO) 0.1 K/uL (0.0-0.2); EOSINOPHILS % (AUTO) 3.9 % (0.0-6.0); HEMATOCRIT 34 % (33-45); HEMOGLOBIN 10.6 g/dL (11.5-14.8); LYMPHOCYTES # (AUTO) 1.6 K/uL (0.8-4.8); LYMPHOCYTES % (AUTO) 25.4 % (20.0-44.0); MEAN CORPUSCULAR HGB CONC 31 g/dl (31.0-36.0); MEAN CORPUSCULAR VOLUME 88 fL (82-100); MONOCYTES # (AUTO) 0.7 K/uL (0.1-1.30); MONOCYTES % (AUTO) 10.8 % (2.0-12.0); NEUTROPHILS # (AUTO) 3.6 K/uL (1.8-8.9); NEUTROPHILS % (AUTO) 58.9 % (43.0-81.0); PLATELET COUNT (AUTO) 273 K/uL (150-450); RED BLOOD CELL COUNT(AUTO) 3.87 MIL/uL (4.0-5.2); WHITE BLOOD COUNT (AUTO) 6.1 K/uL (4.3-11.0)
[2022-03-21] MEDS: AMIODARONE HCL 200 MG TABLET PO SCH (09:00)
[2022-03-21 09:04] VITALS: BP 132/50
[2022-03-21] MEDS: CHOLECALCIFEROL 1,000 UNIT TABLET (VIT D3) PO SCH (09:19)
[2022-03-21] MEDS: MIDODRINE HCL (5MG) 5 MG TABLET PO SCH ×3 (09:19→16:20)
[2022-03-21] MEDS: CYANOCOBALAMIN 500 MCG TABLET PO SCH (09:20)
[2022-03-21] MEDS: PANTOPRAZOLE 40 MG TABLET.DR PO SCH ×2 (09:20→21:23)
[2022-03-21] MEDS: MAGNESIUM OXIDE 400 MG TABLET PO SCH (09:20)
[2022-03-21] MEDS: ASCORBIC ACID 500 MG TABLET PO SCH (09:20)
[2022-03-21] MEDS: SPIRONOLACTONE 25 MG TABLET PO SCH (09:20)
[2022-03-21] MEDS: FERROUS SULFATE (325 MG) 325 MG/TAB TABLET PO SCH (09:21)
[2022-03-21] MEDS: FOLIC ACID 1 MG TABLET PO SCH (09:21)
[2022-03-21] MEDS: ropiniROLE 0.5 MG TABLET PO SCH ×3 (09:21→16:19)
[2022-03-21] MEDS: RIVAROXABAN 10 MG TABLET PO SCH (09:22)
[2022-03-21] MEDS: GLUCERNA SHAKE 237 ML CAN PO SCH (09:23)
[2022-03-21] MEDS: CARVEDILOL 12.5 MG TABLET PO SCH ×2 (09:23→21:00)
--- NOTE | 2022-03-21 10:56 | NUR ---
Pt placed on bipap due to low saturation. Family requested she be put on.
[2022-03-21] MEDS: INSULIN REGULAR, HUMAN 100 UNIT/ML 3 ML VIAL SQ PRN ×2 (11:49→17:30)
[2022-03-21 12:00] VITALS: BP 108/48
[2022-03-21 16:00] VITALS: BP 111/40
[2022-03-21] MEDS: FUROSEMIDE 40 MG/4 ML VIAL IV SCH ×2 (16:20→16:55)
--- NOTE | 2022-03-21 19:30 | NUR ---
COMPUTER SYSTEM SPECIALIST OPENING NOTE RECEIVED PT AWAKE IN BED. FAMILY AT BEDSIDE. A/O X3 AND NAMIBIAN SPEAKING ONLY. PT ON O2 @ 2 LPM, TOLERATING WELL. NO SOB OR S/S OF RESPIRATORY DISTRESS. BREATHING EVEN AND UNLABORED. ON EXTERNAL LIFT TRUCK OPERATOR READING SB 55 BPM. IV ACCESS REESE ML, INTACT AND PATENT. SAFETY PRECAUTIONS IN PLACE. BED IN LOWEST LOCKED POSITION, HOB ELEVATED, SIDE RAILS UPX 3, AND CALL LIGHT AND TABLE WITHIN REACH. ALL NEEDS MET AT THIS TIME.
--- NOTE | 2022-03-21 19:37 | NUR ---
MARINE ELECTRICIAN APPRENTICE CLOSING NOTES PATIENT ON BED AWAKE AND A/O X3, [place]EN[place] SPEAKING. ON ROOM AIR TOLERATING WELL. WITH NO COMPLAINTS OF PAIN AT THIS TIME. WITH IV ACCESS AT THE LEFT UPPER ARM MIDLINE, SALINE LOCKED, PATENT AND INTACT. ON TELE MONITOR CURRENTLY READING SINUS BRADYCARDIA AT 55BPM. WITH MATTHEWS CATHETER IN PLACED DRAINING CLEAR YELLOW URINE. DUE MEDS GIVEN. SAFETY MEASURES IN PLACED. CALL LIGHT WITHIN REACH. BED ON LOWEST LOCKED POSITION, SIDE RAILS UP X2. WILL ENDORSE TO NEXT SHIFT FOR JOSE.
[2022-03-21 20:00] VITALS: BP 132/61
--- NOTE | 2022-03-21 21:19 | NUR ---
RN NOTE HELD COREG 25 MG FOR LOW HR 56 BPM. CHARGE NURSE MAHESH FERNANDEZ.
[2022-03-21] MEDS: LATANOPROST EYE DROP 0.005% 2.5 ML BOTTLE EACHEYE SCH (21:23)
[2022-03-21] MEDS: MEMANTINE HCL 5 MG TABLET PO SCH (21:23)
[2022-03-21] MEDS: ATORVASTATIN 40 MG TABLET PO SCH (21:23)
[2022-03-21] MEDS: *INSULIN REGULAR(HUMULIN R)HUM 100 UNIT/ML VIAL SQ PRN (21:35)
[2022-03-22] VITALS: BP 136/68
[2022-03-22] MEDS: ALBUTEROL FS 2.5 MG/3 ML VIAL.NEB NEB SCH ×4 (02:16→20:15)
[2022-03-22] MEDS: IPRATROPIUM NEB FS 0.5 MG/2.5 ML AMPUL.NEB NEB SCH ×4 (02:16→20:15)
[2022-03-22 04:00] VITALS: BP 122/52
--- NOTE | 2022-03-22 05:03 | NUR ---
RT NOTE PATIENT CURRENTLY ON 2LPM N/C. ATTEMPTED TO DRAW ABG BUT PATIENT THEN REFUSED. PRIMARY NURSE AT BEDSIDE. NO SIGNS OF RESPIRATORY DISTRESS NOTED.
[2022-03-22] MEDS: BLOOD SUGAR DIAGNOSTIC 1 EACH STRIP IN SCH ×4 (06:31→21:23)
--- NOTE | 2022-03-22 06:49 | NUR ---
CLIP COATER CLOSING NOTE RECEIVED PT AWAKE IN BED. A/O X3 AND [place] SPEAKING ONLY. PT ON O2 @ 2 LPM, TOLERATING WELL. NO SOB OR S/S OF RESPIRATORY DISTRESS. BREATHING EVEN AND UNLABORED. ON EXTERNAL PROJECT EXECUTIVE READING SB 59 BPM. IV ACCESS REESE ML AND L HAND 20 G, INTACT AND PATENT. ALL DUE MEDS GIVEN ORDERED. SAFETY PRECAUTIONS IN PLACE AT ALL TIMES. BED IN LOWEST LOCKED POSITION, HOB ELEVATED, SIDE RAILS UPX 3, AND CALL LIGHT AND TABLE WITHIN REACH. ALL NEEDS MET AT THIS TIME AND WILL ENDORSE TO ONCOMING NURSE FOR JOSE.
--- NOTE | 2022-03-22 07:30 | NUR ---
TAX ASSISTANT NOTES PT IN BED, ASLEEP, EASY TO AROUSE, ALERT AND ABLE TO MAKE NEEDS KNOWN, WITH O2 SAT OF 88-89%, NOT IN DISTRESS, CALL LIGHT AND ROOM PHONE WITHIN REACH, KEPT COMFORTABLE IN BED.
[2022-03-22 07:39] LABS: CREATININE 1.3 mg/dL (0.6-1.3); POTASSIUM 4.3 mmol/L (3.5-5.1)
[2022-03-22 08:00] VITALS: BP 136/66
[2022-03-22] MEDS: LINZESS 145 MCG PO SCH (08:34)
--- NOTE | 2022-03-22 08:40 | NUR ---
WASTEWATER ENGINEER NOTES PT HAVING EPISODE OF SOB, O2 SAT BETWEEN 77-88% FLUCTUATING, RT AT BEDSIDE, KEPT HOB ELEVATED, PT SEEN BY DR. SILVESTRE, ORDERS GIVEN TO DO STAT ABG, NOTED AND CARRIED OUT.
[2022-03-22] MEDS: GLUCERNA SHAKE 237 ML CAN PO SCH (08:45)
[2022-03-22] MEDS: FUROSEMIDE 40 MG/4 ML VIAL IV SCH ×2 (08:52→16:10)
[2022-03-22] MEDS: MIDODRINE HCL (5MG) 5 MG TABLET PO SCH ×3 (09:00→16:06)
[2022-03-22 09:46] LABS: BASOPHILS % (AUTO) 0.6 % (0.0-2.0); EOSINOPHILS % (AUTO) 4.4 % (0.0-6.0); HEMATOCRIT 35 % (33-45); HEMOGLOBIN 11.1 g/dL (11.5-14.8); LYMPHOCYTES # (AUTO) 1.7 K/uL (0.8-4.8); LYMPHOCYTES % (AUTO) 24.7 % (20.0-44.0); MEAN CORPUSCULAR HGB CONC 31 g/dl (31.0-36.0); MEAN CORPUSCULAR VOLUME 88 fL (82-100); MONOCYTES # (AUTO) 0.6 K/uL (0.1-1.30); MONOCYTES % (AUTO) 9.3 % (2.0-12.0); NEUTROPHILS # (AUTO) 4.1 K/uL (1.8-8.9); PLATELET COUNT (AUTO) 260 K/uL (150-450); RED BLOOD CELL COUNT(AUTO) 4.01 MIL/uL (4.0-5.2); WHITE BLOOD COUNT (AUTO) 6.7 K/uL (4.3-11.0)
[2022-03-22 10:01] LABS: MAGNESIUM 2.4 mg/dL (1.8-2.4)
[2022-03-22 10:02] LABS: ABG PCO2 80.8 mmHg (35.0-45.0); ABG PH 7.363 (7.350-7.450); ABG PO2 53.2 mmHg (75.0-100.0); COHb 0.9 % (0.5-1.5); MetHb 0.3 % (0.0-1.5); SITE, ABG Left Radial; VENT MODE, BG NC 4L
--- NOTE | 2022-03-22 10:15 | NUR ---
SOLDERER ASSEMBLY REPAIR NOTES PT IN BED, NOT IN DISTRESS AT THIS TIME, NO COMPLAINT OF PAIN, SEEN AND EXAMINED BY DR. CLAYTON, PLAN OF CARE DISCUSSED WITH PATIENT AND FAMILY AT BEDSIDE AND VIA PHONE, VERBALIZED UNDERSTANDING, AND DR. SILVESTRE INFORMED OF LATEST ABG RESULTS, AWAITING FURTHER ORDERS, CALL LIGHT WITHIN EASY REACH.
[2022-03-22] MEDS: CHOLECALCIFEROL 1,000 UNIT TABLET (VIT D3) PO SCH (10:19)
[2022-03-22] MEDS: CYANOCOBALAMIN 500 MCG TABLET PO SCH (10:19)
[2022-03-22] MEDS: MAGNESIUM OXIDE 400 MG TABLET PO SCH (10:19)
[2022-03-22] MEDS: ASCORBIC ACID 500 MG TABLET PO SCH (10:19)
[2022-03-22] MEDS: FERROUS SULFATE (325 MG) 325 MG/TAB TABLET PO SCH (10:19)
[2022-03-22] MEDS: ropiniROLE 0.5 MG TABLET PO SCH ×3 (10:19→16:10)
[2022-03-22] MEDS: CARVEDILOL 12.5 MG TABLET PO SCH ×2 (10:20→20:43)
[2022-03-22] MEDS: SPIRONOLACTONE 25 MG TABLET PO SCH (10:20)
[2022-03-22] MEDS: AMIODARONE HCL 200 MG TABLET PO SCH (10:21)
[2022-03-22] MEDS: RIVAROXABAN 10 MG TABLET PO SCH (10:22)
[2022-03-22] MEDS: FOLIC ACID 1 MG TABLET PO SCH (10:23)
[2022-03-22] MEDS: PANTOPRAZOLE 40 MG TABLET.DR PO SCH ×2 (10:23→20:41)
--- NOTE | 2022-03-22 10:30 | NUR ---
REGULATORY COMPLIANCE ENGINEER NOTES DR. SILVESTRE INFORMED OF LATEST ABG RESULTS, ORDERS GIVEN TO REPEAT ABG IN AM.
[2022-03-22 12:00] VITALS: BP 124/50
[2022-03-22 16:00] VITALS: BP 150/72
[2022-03-22] MEDS: PROSOURCE / PROSTAT (PYXIS) 30 ML UDC PO SCH (16:11)
[2022-03-22] MEDS: INSULIN REGULAR, HUMAN 100 UNIT/ML 3 ML VIAL SQ PRN (17:28)
--- NOTE | 2022-03-22 18:14 | NUR ---
CYBER SOFTWARE ENGINEER NOTES PT IN BED, AWAKE, ALERT AND ORIENTED, ABLE TO MAKE NEEDS KNOWN, DENIES PAIN, NOT IN DISTRESS, ON O2 AT 4LPM VIA N/C WITH O2 SAT BETWEEN 80-89%, DROPS DOWN TO HIGH 70'S DURING REPOSITIONING AND PERICARE, ON BIPAP PRN AND AT NIGHTTIME, REPOSITIONED FOR COMFORT, PM MEDS GIVEN ORDERED, MIDLINE AT RIGHT UPPER ARM INTACT AND PATENT, KEPT HOB ELEVATED TO PROMOTE OXYGENATION, BREATHING TREATMENT GIVEN BY RT ORDERED, NEEDS ATTENDED.
--- NOTE | 2022-03-22 19:30 | NUR ---
DISTILLERY MANAGER OPENING NOTE RECEIVED PATIENT IN BED, WITH HOB ELEVATED, ALERT AND ORIENTED X3, WITH FAMILY AT BEDSIDE. AFEBRILE AND NOT IN ANY FORM OF ACUTE DISTRESS. ON O2 INHALATION VIA NASAL CANNULA AT 4LPM. ON TELE MONITORING WITH CURRENT READING OF SB/SR. WITH IV ACCESS ON REESE MIDLINE-SL. WITH INTACT MATTHEWS CATHETER, DRAINING WELL WITH YELLOW URINE OUTPUT, NO HEMATURIA OR SEDIMENTS NOTED. SAFETY MEASURES IN PLACE. KEPT BED IN LOCKED AND IN LOW POSITION. SIDE RAILS UP X2. ADVISED TO USE THE CALL LIGHT WHEN IN NEED OF ASSISTANCE.
[2022-03-22 20:34] VITALS: BP 126/64
--- NOTE | 2022-03-22 20:44 | NUR ---
MAIL CLERK BILLS NOTE CARVEDILOL NOT GIVEN PER PROTOCOL. PULSE WAS BELOW 60.
[2022-03-22] MEDS: MEMANTINE HCL 5 MG TABLET PO SCH (21:19)
[2022-03-22] MEDS: ATORVASTATIN 40 MG TABLET PO SCH (21:19)
[2022-03-22] MEDS: LATANOPROST EYE DROP 0.005% 2.5 ML BOTTLE EACHEYE SCH (21:23)
[2022-03-22] MEDS: *INSULIN REGULAR(HUMULIN R)HUM 100 UNIT/ML VIAL SQ PRN (21:26)
[2022-03-23 00:13] VITALS: BP 137/66
[2022-03-23] MEDS: IPRATROPIUM NEB FS 0.5 MG/2.5 ML AMPUL.NEB NEB SCH ×4 (01:20→20:30)
[2022-03-23] MEDS: ALBUTEROL FS 2.5 MG/3 ML VIAL.NEB NEB SCH ×4 (01:20→20:30)
--- NOTE | 2022-03-23 02:00 | NUR ---
LAP RUNNER NOTE PATIENT TRIED TO REMOVED HER BIPAP DESPITE EXPLAINING RISK AND CONSEQUENCES OF NOT WEARING IT. ADJUSTED STRAPS FOR COMFORT BUT PATIENT STILL INSISTED TO TAKE IT OFF. REMOVED BIPAP AND PLACED ON O2 INHALATION VIA NASAL CANNULA AT 3LPM, SATURATING WELL AT 93-94%. RT AND CN MADE AWARE. PATIENT IS NOT IN RESPIRATORY DISTRESS AT THIS TIME.
--- NOTE | 2022-03-23 02:10 | NUR ---
RT NOTE PT CURRENT OFF BIPAP AT THIS TIME. PT REMOVED AND REFUSED TO HAVE IT ON. PT SAT 93% ON 3L NC. RN AWARE.
--- NOTE | 2022-03-23 04:00 | NUR ---
RT NOTE ATTEMPTED TO PLACE PT BACK ON BIPAP BUT STILL REFUSED AT THIS TIME.
--- NOTE | 2022-03-23 04:57 | NUR ---
RESIDENT PHYSICIAN NOTE TRIED TO CHECK AND OFFERED TO CHANGE THE PATIENT BUT SHE REFUSED. RECEIVED A CALL FROM HER DAUGHTER TELLING US NOT TO CHANGE HER AT THIS TIME AND JUST ENDORSED IT TO DO IT AT AROUND 1000 SO THAT SHE CAN REST. INFORMED CHANGE NURSE ABOUT THE REQUEST.
[2022-03-23] MEDS: BLOOD SUGAR DIAGNOSTIC 1 EACH STRIP IN SCH ×4 (06:30→22:27)
--- NOTE | 2022-03-23 06:30 | NUR ---
BILLING SPEC CLOSING NOTE PATIENT IN BED, WITH HOB ELEVATED, SLEEPING INTERMITTENTLY. AFEBRILE AND NOT IN ANY FORM OF ACUTE DISTRESS. ON BIPAP AT THE EARLY OF THE SHIFT BUT PATIENT TOOK IT OFF AND PLACED ON O2 INHALATION VIA NASAL CANNULA AT 3LPM, SATURATING WELL, NO C/O SOB/WHEEZING. ON TELE MONITORING WITH CURRENT READING OF SB 57. WITH IV ACCESS ON REESE MIDLINE-SL. WITH INTACT MATTHEWS CATHETER, DRAINING WELL WITH YELLOW URINE OUTPUT, NO HEMATURIA OR SEDIMENTS NOTED. MONITORED FOR ANY S/SX. OF HYPO/HYPERGLYCEMIA. MEDICATED ORDERED. SAFETY MEASURES IN PLACE. KEPT BED IN LOCKED AND IN LOW POSITION. SIDE RAILS UP X2. ADVISED TO USE THE CALL LIGHT WHEN IN NEED OF ASSISTANCE. ALL NURSING NEEDS ATTENDED. ENDORSED TO INCOMING SHIFT FOR CONTINUITY OF CARE.
[2022-03-23 06:42] LABS: BASOPHILS % (AUTO) 0.3 % (0.0-2.0); EOSINOPHILS % (AUTO) 2.9 % (0.0-6.0); HEMATOCRIT 34 % (33-45); HEMOGLOBIN 10.7 g/dL (11.5-14.8); LYMPHOCYTES # (AUTO) 1.3 K/uL (0.8-4.8); LYMPHOCYTES % (AUTO) 15.6 % (20.0-44.0); MEAN CORPUSCULAR HGB CONC 31 g/dl (31.0-36.0); MEAN CORPUSCULAR VOLUME 89 fL (82-100); MONOCYTES # (AUTO) 0.8 K/uL (0.1-1.30); MONOCYTES % (AUTO) 9.2 % (2.0-12.0); NEUTROPHILS # (AUTO) 5.9 K/uL (1.8-8.9); PLATELET COUNT (AUTO) 234 K/uL (150-450); RED BLOOD CELL COUNT(AUTO) 3.85 MIL/uL (4.0-5.2); WHITE BLOOD COUNT (AUTO) 8.2 K/uL (4.3-11.0)
[2022-03-23 07:06] LABS: CALCIUM, SERUM 9.4 mg/dL (8.5-10.1); CREATININE 1.2 mg/dL (0.6-1.3); MAGNESIUM 2.2 mg/dL (1.8-2.4); POTASSIUM 4.1 mmol/L (3.5-5.1)
--- NOTE | 2022-03-23 07:30 | NUR ---
RN Opening Note Patient AOx4 able to express her concerns. Patient takes her time to answer. Patient with no signs of distress or discomfort other that back pain 03/18. Discussed plan of care, states daughter is looking for placement at another hospital. All safety precautions taken, call light and table within reach, bed at lowest position. Will continue to monitor throughout shift.
[2022-03-23] MEDS: LINZESS 145 MCG PO SCH (07:54)
[2022-03-23 08:00] VITALS: BP 133/62
[2022-03-23] MEDS: FUROSEMIDE 40 MG/4 ML VIAL IV SCH ×4 (08:50→21:34)
[2022-03-23] MEDS: ropiniROLE 0.5 MG TABLET PO SCH ×3 (08:51→16:59)
[2022-03-23] MEDS: CHOLECALCIFEROL 1,000 UNIT TABLET (VIT D3) PO SCH (08:51)
[2022-03-23] MEDS: FERROUS SULFATE (325 MG) 325 MG/TAB TABLET PO SCH (08:52)
[2022-03-23] MEDS: FOLIC ACID 1 MG TABLET PO SCH (08:52)
[2022-03-23] MEDS: CYANOCOBALAMIN 500 MCG TABLET PO SCH (08:52)
[2022-03-23] MEDS: SPIRONOLACTONE 25 MG TABLET PO SCH (08:52)
[2022-03-23] MEDS: ASCORBIC ACID 500 MG TABLET PO SCH (08:52)
[2022-03-23] MEDS: PANTOPRAZOLE 40 MG TABLET.DR PO SCH ×2 (08:53→21:33)
[2022-03-23] MEDS: MAGNESIUM OXIDE 400 MG TABLET PO SCH (08:53)
[2022-03-23] MEDS: CARVEDILOL 12.5 MG TABLET PO SCH ×2 (08:54→22:10)
[2022-03-23] MEDS: AMIODARONE HCL 200 MG TABLET PO SCH (08:54)
[2022-03-23] MEDS: RIVAROXABAN 10 MG TABLET PO SCH (08:55)
[2022-03-23] MEDS: MIDODRINE HCL (5MG) 5 MG TABLET PO SCH ×3 (09:00→17:00)
[2022-03-23 09:28] LABS: ABG BASE EXCESS 16.1 mmol/L; ABG OXYGEN SATURATION 73.8 % (92.0-98.5); ABG PH 7.372 (7.350-7.450); ABG PO2 39.2 mmHg (75.0-100.0); COHb 1.5 % (0.5-1.5); O2Hb 72.7 % (94.0-97.0); SITE, ABG Other; VENT MODE, BG Nasal Cannula
[2022-03-23] MEDS: PROSOURCE / PROSTAT (PYXIS) 30 ML UDC PO SCH ×2 (09:42→16:59)
[2022-03-23] MEDS: AMOX/CLAVULANATE 250 MG TABLET PO SCH ×2 (10:53→21:33)
[2022-03-23 12:00] VITALS: BP 121/61
[2022-03-23] MEDS ORDERED: acetaZOLAMIDE SODIUM 500 MG/VIAL VIAL IV ONE (12:00)
[2022-03-23] MEDS: INSULIN REGULAR, HUMAN 100 UNIT/ML 3 ML VIAL SQ PRN ×2 (14:11→17:25)
[2022-03-23 16:00] VITALS: BP 109/54
--- NOTE | 2022-03-23 18:00 | NUR ---
RN closing note Patient AOx3, able to express her own concerns. Patient with no signs of distress, VSS Medications administered as prescribed, care, including wound care provided as ordered. All safety precautions taken, call light and table within reach, bed at lowest position. Will endorse to night nurse for continuity of care.
--- NOTE | 2022-03-23 19:32 | NUR ---
BOREMATIC OPERATOR OPENING NOTES; RECEIVED PATIENT AWAKE IN BED, ACCOMPANIED BY FAMILY, BED IN LOW POSITION, CALL LIGHTS WITHIN REACH, NO COMPLAIN OF PAIN AND DISCOMFORT AT THIS TIME, ON O2 INHALATION AT 3LPM SATURATING AT 997-98% ON TELE MONITOR- SR-90 WITH PVC, IV LINE AT REESE ML SL, ON MATTHEWS CATHETER- 50CC URINE OUTPUT, HOB AT 45 DEGREE, PATIENT KEPT CLEAN AND DRY ALL NEEDS MET WILL CONTINUE TO MONITOR-
[2022-03-23] MEDS: MEMANTINE HCL 5 MG TABLET PO SCH (22:11)
[2022-03-23] MEDS: LATANOPROST EYE DROP 0.005% 2.5 ML BOTTLE EACHEYE SCH (22:11)
[2022-03-23] MEDS: ATORVASTATIN 40 MG TABLET PO SCH (22:11)
[2022-03-23] MEDS: *INSULIN REGULAR(HUMULIN R)HUM 100 UNIT/ML VIAL SQ PRN (22:27)
[2022-03-24] VITALS (8 sets, daily range): BP systolic 100–122; BP diastolic 35–68
[2022-03-24] MEDS: ALBUTEROL FS 2.5 MG/3 ML VIAL.NEB NEB SCH ×4 (01:28→20:18)
[2022-03-24] MEDS: IPRATROPIUM NEB FS 0.5 MG/2.5 ML AMPUL.NEB NEB SCH ×4 (01:28→20:18)
[2022-03-24] MEDS: FUROSEMIDE 40 MG/4 ML VIAL IV SCH ×2 (05:30→12:33)
[2022-03-24] MEDS: INSULIN REGULAR, HUMAN 100 UNIT/ML 3 ML VIAL SQ PRN ×2 (06:44→17:46)
[2022-03-24] MEDS: BLOOD SUGAR DIAGNOSTIC 1 EACH STRIP IN SCH ×4 (06:45→22:37)
--- NOTE | 2022-03-24 06:45 | NUR ---
RN NOTES: BLOOD SUGAR- 134/ 2 UNITS REGULAR INSULIN GIVEN PER SLIDING SCALE,
--- NOTE | 2022-03-24 06:46 | NUR ---
MATERIAL CREW SUPERVISOR CLOSING NOTES: PATIENT SLEEP IN BED COMFORTABLY, AROUSABLE TO VERBAL STIMULI, BED IN LOW POSITION CALL LIGHTS WITHIN REACH, NO COMPLAIN OF PAIN AND DISCOMFORT AT THIS TIME ON O2 INHALATION AT 2LPM SATURATING WELL, PATIENT ON BPAP SINCE 5 AM, PATIENT REQUEST TO BE REMOVED,ON TELE MONITOR-SR 74 WITH 1ST DEGREE AV BLOCK, NO SYMPTOMS WAS OBSERVED, WITH LUAML SL, ON MATTHEWS CATHETER-1150 CC URINE OUTPUT.REPOSITION, KEPT CLEAN AND DRY ALL NEEDS MET ENDORSE TO INCOMING SHIFT.
--- NOTE | 2022-03-24 07:30 | NUR ---
RN Opening Note Patient AOx4 able to express her concerns. Patient takes her time to answer. Patient with no signs of distress, states no pain. Discussed plan of care, states daughter is working on placement. All safety precautions taken, call light and table within reach, bed at lowest position. Will continue to monitor throughout shift.
[2022-03-24] MEDS: ASCORBIC ACID 500 MG TABLET PO SCH (08:15)
[2022-03-24] MEDS: LINZESS 145 MCG PO SCH (08:15)
[2022-03-24] MEDS: SPIRONOLACTONE 25 MG TABLET PO SCH (08:15)
[2022-03-24] MEDS: PROSOURCE / PROSTAT (PYXIS) 30 ML UDC PO SCH ×3 (08:15→16:35)
[2022-03-24] MEDS: PANTOPRAZOLE 40 MG TABLET.DR PO SCH ×2 (08:15→21:57)
[2022-03-24] MEDS: MAGNESIUM OXIDE 400 MG TABLET PO SCH (08:15)
[2022-03-24] MEDS: CHOLECALCIFEROL 1,000 UNIT TABLET (VIT D3) PO SCH (08:15)
[2022-03-24] MEDS: CYANOCOBALAMIN 500 MCG TABLET PO SCH (08:16)
[2022-03-24] MEDS: ropiniROLE 0.5 MG TABLET PO SCH ×3 (08:16→16:15)
[2022-03-24] MEDS: AMOX/CLAVULANATE 250 MG TABLET PO SCH ×2 (08:16→21:57)
[2022-03-24] MEDS: RIVAROXABAN 10 MG TABLET PO SCH (08:17)
[2022-03-24] MEDS: FOLIC ACID 1 MG TABLET PO SCH (08:22)
[2022-03-24] MEDS: FERROUS SULFATE (325 MG) 325 MG/TAB TABLET PO SCH (08:22)
[2022-03-24] MEDS: AMIODARONE HCL 200 MG TABLET PO SCH (08:23)
[2022-03-24] MEDS: MIDODRINE HCL (5MG) 5 MG TABLET PO SCH ×3 (08:23→16:16)
[2022-03-24] MEDS: CARVEDILOL 12.5 MG TABLET PO SCH ×2 (08:23→21:58)
[2022-03-24 09:12] LABS: BASOPHILS # (AUTO) 0.1 K/uL (0.0-0.2); BASOPHILS % (AUTO) 0.6 % (0.0-2.0); HEMATOCRIT 35 % (33-45); LYMPHOCYTES # (AUTO) 1.5 K/uL (0.8-4.8); LYMPHOCYTES % (AUTO) 16.7 % (20.0-44.0); MEAN CORPUSCULAR HGB CONC 31 g/dl (31.0-36.0); MEAN CORPUSCULAR VOLUME 89 fL (82-100); MONOCYTES # (AUTO) 0.7 K/uL (0.1-1.30); MONOCYTES % (AUTO) 7.8 % (2.0-12.0); NEUTROPHILS # (AUTO) 6.3 K/uL (1.8-8.9); NEUTROPHILS % (AUTO) 71.9 % (43.0-81.0); PLATELET COUNT (AUTO) 226 K/uL (150-450); RED BLOOD CELL COUNT(AUTO) 3.96 MIL/uL (4.0-5.2); WHITE BLOOD COUNT (AUTO) 8.8 K/uL (4.3-11.0)
[2022-03-24 09:33] LABS: ABG PCO2 67.9 mmHg (35.0-45.0); ABG PH 7.433 (7.350-7.450); ABG PO2 57.8 mmHg (75.0-100.0); COHb 1.1 % (0.5-1.5); MetHb 0.3 % (0.0-1.5); O2Hb 88.5 % (94.0-97.0); SITE, ABG Left Radial; VENT MODE, BG nasal cannula
[2022-03-24 09:41] LABS: CALCIUM, SERUM 9.3 mg/dL (8.5-10.1); CHLORIDE 94 mmol/L (98-107); CREATININE 1.5 mg/dL (0.6-1.3); GLUCOSE 168 mg/dL (74-106); MAGNESIUM 2.1 mg/dL (1.8-2.4); PHOSPHORUS 3.8 mg/dL (2.5-4.9); SODIUM SERUM 139 mmol/L (136-145); UREA NITROGEN, BLOOD 40 mg/dL (7-18)
[2022-03-24 10:23] LABS: CARBON DIOXIDE 45 mmol/L (21-32)
[2022-03-24] MEDS: *INSULIN REGULAR(HUMULIN R)HUM 100 UNIT/ML VIAL SQ PRN ×2 (12:34→22:33)
--- NOTE | 2022-03-24 16:36 | NUR ---
Pt refused prostat Educated patient and daughter on importance of prostat, pt continued to refuse.
--- NOTE | 2022-03-24 18:18 | NUR ---
RN closing note Patient AOx4, able to express her own concerns. Patient with no signs of distress, VSS Medications administered as prescribed, care, including wound care provided as ordered. All safety precautions taken, call light and table within reach, bed at lowest position. Will endorse to night nurse for continuity of care.
[2022-03-24] MEDS ORDERED: acetaZOLAMIDE SODIUM 500 MG/VIAL VIAL IV ONE (19:00)
--- NOTE | 2022-03-24 19:46 | NUR ---
TAX INTERN OPENING NOTES: RECEIVED PATIENT AWAKE IN BED, ACCOMPANIED BY CAREGIVER, BED IN LOW POSITION CALL LIGHTS WITHIN REACH, NO COMPLAIN OF PAIN AND DISCOMFORT AT THIS TIME, ON O2 INHALATION AT 3LPM SATURATING WELL, PATIENT IS A/OX4 GUAMANIAN SPEAKING ABLE TO MAKE NEEDS KNOWN, PATIENT HOB TO REMAIN AT 45 DEGREE, ON MATTHEWS CATHETER-50CC URINE OUTPUT, ON TELE- AFIB -77, WITH IV LINE AT REESE ML SL, PATIENT KEPT CLEAN AND DRY ALL NEEDS MET WILL CONTINUE TO MONITOR.
[2022-03-24] MEDS: ATORVASTATIN 40 MG TABLET PO SCH (21:57)
[2022-03-24] MEDS: MEMANTINE HCL 5 MG TABLET PO SCH (21:57)
[2022-03-24] MEDS: LATANOPROST EYE DROP 0.005% 2.5 ML BOTTLE EACHEYE SCH (22:31)
--- NOTE | 2022-03-24 22:37 | NUR ---
RN NOTES: BLOOD SUGAR-172/ 3 UNITS REGULAR INSULIN GIVEN PER SLIDING SCALE,
[2022-03-25] VITALS (7 sets, daily range): BP systolic 104–129; BP diastolic 47–67
[2022-03-25] MEDS: ALBUTEROL FS 2.5 MG/3 ML VIAL.NEB NEB SCH ×3 (01:37→13:54)
[2022-03-25] MEDS: IPRATROPIUM NEB FS 0.5 MG/2.5 ML AMPUL.NEB NEB SCH ×3 (01:37→13:54)
[2022-03-25 05:53] LABS: BASOPHILS % (AUTO) 0.3 % (0.0-2.0); EOSINOPHILS % (AUTO) 5.1 % (0.0-6.0); HEMATOCRIT 34 % (33-45); HEMOGLOBIN 10.9 g/dL (11.5-14.8); LYMPHOCYTES # (AUTO) 1.4 K/uL (0.8-4.8); LYMPHOCYTES % (AUTO) 20.5 % (20.0-44.0); MEAN CORPUSCULAR HGB CONC 32 g/dl (31.0-36.0); MEAN CORPUSCULAR VOLUME 89 fL (82-100); MONOCYTES # (AUTO) 0.6 K/uL (0.1-1.30); NEUTROPHILS # (AUTO) 4.6 K/uL (1.8-8.9); NEUTROPHILS % (AUTO) 65.1 % (43.0-81.0); PLATELET COUNT (AUTO) 212 K/uL (150-450); RED BLOOD CELL COUNT(AUTO) 3.86 MIL/uL (4.0-5.2)
[2022-03-25 06:12] LABS: CALCIUM, SERUM 9.1 mg/dL (8.5-10.1); CHLORIDE 95 mmol/L (98-107); CREATININE 1.5 mg/dL (0.6-1.3); GLUCOSE 118 mg/dL (74-106); MAGNESIUM 2.1 mg/dL (1.8-2.4); PHOSPHORUS 3.7 mg/dL (2.5-4.9); POTASSIUM 3.9 mmol/L (3.5-5.1); SODIUM SERUM 139 mmol/L (136-145); UREA NITROGEN, BLOOD 41 mg/dL (7-18)
[2022-03-25 06:24] LABS: CARBON DIOXIDE 44 mmol/L (21-32)
--- NOTE | 2022-03-25 06:30 | NUR ---
RN NOTES: RECEIVED CRITICAL LABS OF CO2 AT 44, PREVIOUS LABS FOR CO2-45 RESULT WAS TRENDING DOWN, ENDORSE TO AM NURSE.
[2022-03-25] MEDS: BLOOD SUGAR DIAGNOSTIC 1 EACH STRIP IN SCH ×2 (07:05→12:14)
--- NOTE | 2022-03-25 07:05 | NUR ---
RN NOTES: BLOOD SUGAR-126/ NO NSULIN GIVEN SLIDING SCALE.
--- NOTE | 2022-03-25 07:09 | NUR ---
APPLE PEELER OPERATOR CLOSING NOTES: PATIENT AWAKE IN BED, BED IN LOW POSITION CALL LIGHTS WITHIN REACH, NO COMPLAIN OF PAIN AND DISCOMFORT AT THIS TIME, ON O2 INHALATION AT 3LPM SATURATING WELL, PATIENT ON MONITORING FOR DESATURATION MAINTAINS >88 WITH BPAP WEARING AT NIGHT, PATIENT ON TELE MONITOR- [id number], NO SYMPTOMS WAS OBSERVED, PATIENT KEPT CLEAN AND DRY, ALL NEEDS MET ENDORSE TO INCOMING SHIFT.
--- NOTE | 2022-03-25 07:57 | NUR ---
RN OPENING NOTE PATIENT AWAKE IN BED RESTING, A/O X 4. NO S/S OF PAIN NOTED AT THIS TIME. ON 3L OXYGEN VIA NC, BREATHING EVEN UNLABORED, NO DISTRESS OR SHORTNESS OF BREATH NOTED AT THIS TIME. IV ACCESS REESE MIDLINE, INTACT PATENT AND FLUSHING WELL. PATIENT HAVE A MATTHEWS CATHETER IN PLACE AND DRAINING WELL. FALL AND SAFETY MEASURES IN PLACE, BED ALARM ON, BED IN LOW AND LOCK POSITION, CALL LIGHT AND TABLE WITHIN EASY REACH, SIDE RAILS UP X2. WILL CONTINUE TO MONITOR.
[2022-03-25] MEDS: FUROSEMIDE 40 MG/4 ML VIAL IV SCH (08:48)
[2022-03-25] MEDS: PROSOURCE / PROSTAT (PYXIS) 30 ML UDC PO SCH (08:48)
[2022-03-25] MEDS: AMIODARONE HCL 200 MG TABLET PO SCH (08:49)
[2022-03-25] MEDS: MIDODRINE HCL (5MG) 5 MG TABLET PO SCH ×2 (08:50→12:39)
[2022-03-25] MEDS: FERROUS SULFATE (325 MG) 325 MG/TAB TABLET PO SCH (08:51)
[2022-03-25] MEDS: MAGNESIUM OXIDE 400 MG TABLET PO SCH (08:51)
[2022-03-25] MEDS: CHOLECALCIFEROL 1,000 UNIT TABLET (VIT D3) PO SCH (08:51)
[2022-03-25] MEDS: SPIRONOLACTONE 25 MG TABLET PO SCH (08:51)
[2022-03-25] MEDS: CARVEDILOL 12.5 MG TABLET PO SCH (08:51)
[2022-03-25] MEDS: PANTOPRAZOLE 40 MG TABLET.DR PO SCH (08:52)
[2022-03-25] MEDS: ASCORBIC ACID 500 MG TABLET PO SCH (08:53)
[2022-03-25] MEDS: LINZESS 145 MCG PO SCH (08:53)
[2022-03-25] MEDS: ropiniROLE 0.5 MG TABLET PO SCH ×2 (08:53→12:38)
[2022-03-25] MEDS: AMOX/CLAVULANATE 250 MG TABLET PO SCH (08:53)
[2022-03-25] MEDS: CYANOCOBALAMIN 500 MCG TABLET PO SCH (08:53)
[2022-03-25] MEDS: RIVAROXABAN 10 MG TABLET PO SCH (08:55)
[2022-03-25] MEDS: FOLIC ACID 1 MG TABLET PO SCH (08:55)
[2022-03-25] MEDS: INSULIN REGULAR, HUMAN 100 UNIT/ML 3 ML VIAL SQ PRN (12:15)
[2022-03-25] MEDS ORDERED: SPIR25TA6 PO (12:27)
[2022-03-25] MEDS ORDERED: ALBU2.5V13 NEB (12:27)
[2022-03-25] MEDS ORDERED: Folic Acid PO (12:27)
[2022-03-25] MEDS ORDERED: Prosource PO (12:27)
[2022-03-25] MEDS ORDERED: NITR0.4T48 SL (12:27)
[2022-03-25] MEDS ORDERED: CYAN500T64 PO (12:27)
[2022-03-25] MEDS ORDERED: ROPI0.5T4 PO (12:27)
[2022-03-25] MEDS ORDERED: LATA2.5D2 EACHEYE (12:27)
[2022-03-25] MEDS ORDERED: IPRA0.2S9 NEB (12:27)
[2022-03-25] MEDS ORDERED: ASCO500T21 PO (12:27)
[2022-03-25] MEDS ORDERED: FURO-144 PO (12:27)
[2022-03-25] MEDS ORDERED: MIDO5TAB4 PO (12:27)
--- NOTE | 2022-03-25 16:45 | NUR ---
STEAM TRAIN DRIVER NOTE PATIENT WAS DISCHARGE IN STABLE MEDICAL CONDITION, A/O X4. V/S TAKEN, STABLE AND RECORDED. PATIENT WENT TO [facility], PATIENT LEFT WITH IV REESE MIDLINE AND MATTHEWS CATHETER IN PLACE AND DRAINING WELL. NAME ARM BAND REMOVED. EXTERNAL SAP BPC DEVELOPER REMOVED AND RETURNED TO TELE DESK. SKIN ASSESSMENT DONE AND PICTURES TAKEN. ALL BELONGINGS CHECKED AND BELONGINGS LIST SIGNED. HEALTH TEACHING AN DISCHARGE INSTRUCTIONS GIVEN TO PATIENT, PATIENT FAMILY AT BEDSIDE AND NURSE AT [facility] AND VERBALIZED UNDERSTANDING. INSTRUCTED TO FOLLOW UP WITH DOCTORS, DISCUSSED PRESCRIPTIONS. REPORT WAS GIVEN TO DINORAH WEBSTER AT [facility] [phone]. PATIENT LEFT UNIT VIA GURNEY WITH NO SIGN OF DISTRESS, ACCOMPANIED BY TELEPHONE CLERKS SUPERVISOR. CHARGE NURSE AWARE OF DISCHARGE.
== END 2022-03-25 16:50 | DRG 291 ==
LOC: ER 14:44 → ICU 20:12 → TELE 03-20 16:39
PROVIDERS: ADMIT Internal Medicine; ATTEND Student in an Organized Health Care Education/Training Program
PROC: 5A09557 Assistance with Respiratory Ventilation, Greater than 96 Consecutive Hours, Continuous Positive Airway Pressure (ICD-10-PCS; 2022-03-16)
PROC: 0W9B3ZX Drainage of Left Pleural Cavity, Percutaneous Approach, Diagnostic (ICD-10-PCS; principal; 2022-03-17)
PROC: 05HF33Z Insertion of Infusion Device into Left Cephalic Vein, Percutaneous Approach (ICD-10-PCS; 2022-03-17)
DX: I13.0 Hypertensive heart and chronic kidney disease with heart failure and stage 1 through stage 4 chronic kidney disease, or unspecified chronic kidney disease (principal); I50.23 Acute on chronic systolic (congestive) heart failure; N17.0 Acute kidney failure with tubular necrosis; J96.21 Acute and chronic respiratory failure with hypoxia; R57.0 Cardiogenic shock; J96.22 Acute and chronic respiratory failure with hypercapnia; E44.0 Moderate protein-calorie malnutrition; J90 Pleural effusion, not elsewhere classified; E87.1 Hypo-osmolality and hyponatremia; E66.2 Morbid (severe) obesity with alveolar hypoventilation; Z68.43 Body mass index [BMI] 50.0-59.9, adult; J98.11 Atelectasis; E87.3 Alkalosis; Z20.822 Contact with and (suspected) exposure to COVID-19; E11.22 Type 2 diabetes mellitus with diabetic chronic kidney disease; E78.5 Hyperlipidemia, unspecified; N18.9 Chronic kidney disease, unspecified; J44.9 Chronic obstructive pulmonary disease, unspecified; Z79.4 Long term (current) use of insulin; Z79.01 Long term (current) use of anticoagulants; Z79.899 Other long term (current) drug therapy; Z79.84 Long term (current) use of oral hypoglycemic drugs; E86.1 Hypovolemia; E88.09 Other disorders of plasma-protein metabolism, not elsewhere classified; E11.65 Type 2 diabetes mellitus with hyperglycemia; D64.9 Anemia, unspecified; T50.1X5A Adverse effect of loop [high-ceiling] diuretics, initial encounter; Y92.239 Unspecified place in hospital as the place of occurrence of the external cause
CPT/HCPCS: 31720; 36415; 36600; 70450-TC; 71045-TC; 76770-TC; 80048-TC; 80053-TC; 80076-TC; 81001; 82803-TC; 82962-TC; 83605-TC; 83735-TC; 83880; 84100-TC; 84484-TC; 85025-TC; 85730-TC; 87040-TC; 87081-TC; 87086-TC; 87102-TC; 88108-TC; 88305-TC; 89051-TC; 93307-TC; 94660; 94799-TC; 97110-TC; 97112-TC; 97116-TC; 97530-TC; 99082-TC; A4223; A6253; C9803; G0378; J1120; J1815; J1940; J2270; J3490; J7030; J7050